=== PATIENT | female | born 1980 | race Caucasian/White ===

== ENCOUNTER 2020-03-07 17:43 | Outpatient (REF) | payer OTHER, SELFPAY | END 2020-03-07 17:44 | disposition home or self-care (01) | LOC: HO.LAB 17:43 | PROVIDERS: PCP Internal Medicine; Visit Provider Internal Medicine | DX: Z20.828 Contact with and (suspected) exposure to other viral communicable diseases (principal) | CPT/HCPCS: U0003 ==

== ENCOUNTER 2023-10-24 10:54 | Outpatient (AMB) | payer OTHER, SELFPAY ==
[2023-10-24 11:14] VITALS: BP 112/68; PULSE 97; O2SAT 98
--- NOTE | 2023-10-24 11:14 | A.OFFVIS_ITS ---
Vital Signs 10/24/23 11:14 Weight 148 lb 5.938 oz BP 112/68 Blood Pressure Location Rt brachial Position Sitting Pulse 97 Pulse Source Pulse Oximeter Pulse Oximetry (%) 98 Oxygen Delivery Method Room Air Intake Visit Reasons: polyarthralgia/Rash Intake Note: New patient presents today for consult, +RORO Reports joint pain, rashes [employer] Kitchen Required: No Accompanied by: Self / Same As Patient Allergies No Known Allergies Allergy (Verified 10/24/23 11:15) HPI Comments Details: Ms. Galaviz 43 yoF here on referral from PCP for evaluation of rash in the context of a +RORO (value not seen on referral), ENAs -ve. --Hx of Crohn's at 12 yo - partial illiectomy secondary to spontaneous perforation,- last seen GI about 10 years ago., original symptoms - bloody stools, vomiting much, Abdominal cramps. --last bout of Uveiitis - 5 or 6 years ago --mouth sores - once per week --Hip pain - L>R felt more with activity. 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 Mother Arthritis Social History Alcohol intake: current Alcohol intake frequency: holidays/special occasions only Patient Tobacco Use Status: Never used Tobacco Review of Systems Const All systems reviewed & are unremarkable except as noted in HPI and below Physical Exam Vital Signs: Last Vital Signs Pulse 97 10/24/23 11:14 BP 112/68 10/24/23 11:14 Pulse Ox 98 10/24/23 11:14 Oxygen Delivery Method Room Air 10/24/23 11:14 Vital signs reviewed. Constitutional: Non-toxic appearing. No acute distress. Well-developed and well-nourished. HEENT: Normocephalic and atraumatic. External auditory canals without erythema or edema bilaterally. Moist mucous membranes. No pharyngeal erythema or exudates. Skin: Warm and dry. hyperpigmented areas to cheeks with scattered healing dry scaly lesions. Neck: Full and painless range of motion. No cervical lymphadenopathy. Cardio: Regular rate and rhythm. No murmurs, gallops, or rubs. No lower extremity edema. No JVD. Pulmonary: No respiratory distress. No accessory muscle usage. Gastrointestinal: Soft, nontender, and nondistended in all 4 quadrants. Normoactive bowel sounds in all 4 quadrants. Genitourinary: No CVA tenderness. Musculoskeletal: Normal range of motion in joints throughout the body. No deformity or other signs of injury. Neuro: Alert and oriented x4. Cranial nerves 2-12 grossly intact. No focal deficits appreciated. 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, SSA/SSB, Scl 70, Miladis 1, centromere B, C3/C4, cardiolipin antibodies, B2 glycoprotein, rheumatoid factor, CCP, TPO Assessment & Plan Assessment & Plan (1) History of Crohn's disease: Code(s): Z87.19 - Personal history of other diseases of the digestive system Category: Medical (2) Rash and nonspecific skin eruption: Code(s): R21 - Rash and other nonspecific skin eruption Category: Medical (3) History of uveitis: Code(s): Z86.69 - Personal history of other diseases of the nervous system and sense organs Category: Medical (4) Inflammatory bowel arthritis: Code(s): K63.9 - Disease of intestine, unspecified; M07.60 - Enteropathic arthropathies, unspecified site Category: Medical Plan #Rash/+RORO: The major question from the patient is if this is Lupus because of the +RORO. I reviewed referral labs and the ENAs are Negative. She does not have a clinical presentation for lupus. and the +RORO can be due to the Crohn's history. 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 Although the patient maintains that her Crohn's is in remission since the surgery over 10 years ago, and she denies diarrhea, blood and mucous in stool, given these symptoms, she should have a GI evaluation - I will make a referral. She shoud discuss with PCP a DERM consult. #Possible IBD arthritis: She has had bouts of Uveiitis (5 years ago) since the surgery/during remission. Some of her current symptoms, such as lower back and hip pain, can be due to IBD arthritis. However, if the crohn's is not active, it is likely onset of OA. She is very active with hiking and exercising. Even if she is without GI symptoms, it may be reasonable to consider starting SLZ and assess for improvement to lower back, hip and resolution of mouth sores, and rash. She takes Ibuprofen 800 mg tablets for joint pain. I spent 35 minutes reviewing history evaluating patient and documenting Follow-up as needed Orders: Referrals Gastroenterology Referral Z87.19 - Personal history of other diseases of the digestive system Coding Level of Care Code New Pt Level 4 (62327) Diagnoses History of Crohn's disease Z87.19 Rash and nonspecific skin eruption R21 History of uveitis Z86.69 Inflammatory bowel arthritis K63.9; M07.60
== END 2023-10-24 12:19 | disposition home or self-care (01) ==
PROVIDERS: PCP Internal Medicine; Visit Provider Nurse Practitioner Family
DX: Z87.19 Personal history of other diseases of the digestive system (principal); R21 Rash and other nonspecific skin eruption; Z86.69 Personal history of other diseases of the nervous system and sense organs; K63.9 Disease of intestine, unspecified; M07.60 Enteropathic arthropathies, unspecified site
CPT/HCPCS: 99204

== ENCOUNTER → 2023-10-24 10:54 | Outpatient (BNVA) | payer OTHER, SELFPAY | PROVIDERS: PCP Internal Medicine; Visit Provider Nurse Practitioner Family ==

== ENCOUNTER 2024-02-07 13:02 | Outpatient (REF) | payer OTHER, SELFPAY ==
[2024-02-07 15:21] LABS: TSH reflex Free T4 0.98 uIU/mL (0.32-4.0)
[2024-02-07 15:34] LABS: Folate 7.3 ng/mL (> or = 4.0); Vitamin B12 710 pg/mL (200-900)
[2024-02-12 16:08] LABS: Vitamin D 25-OH, D2 <4 ng/mL; Vitamin D 25-OH, D3 31 ng/mL; Vitamin D 25-OH, Total 31 ng/mL (30-100)
== END 2024-02-07 13:03 | disposition home or self-care (01) ==
LOC: HO.LAB 13:02
PROVIDERS: PCP Nurse Practitioner Family; Visit Provider Nurse Practitioner Family
DX: R19.7 Diarrhea, unspecified (principal); E55.9 Vitamin D deficiency, unspecified; K59.00 Constipation, unspecified
CPT/HCPCS: 36415; 82306; 82607; 82746; 84443

== ENCOUNTER 2024-02-07 13:02 | Outpatient (AMB) | payer OTHER, SELFPAY ==
--- NOTE | 2024-02-07 13:04 | MHC.OFFVIS ---
Vital Signs 02/07/24 13:05 Height 5 ft 3 in Weight 145 lb 8.081 oz BMI 25.8 BP 141/80 H Blood Pressure Location Lt brachial Position Sitting Pulse 75 Intake Visit Reasons: Patient with HX of crohn's Intake Note: Natasha presents in the office as a new patient for Hx of Crohns. CC: She states that she does have bouts of constipation to the point where she will have rectal bleeding. She has been in remission and had a colonoscopy 10-12 years ago. She is having other symptoms with her skin with swelling of the face and patches that felt like shingles on her face as well. She states that started in May and ended in September. Crew Person Required: No Allergies latex Allergy (Mild, Verified 02/07/24 13:09) Rash Seasonal Allergies Allergy (Mild, Verified 02/07/24 13:09) Unknown HPI HPI Patient with HX of crohn's: Details: 43-year-old male with past medical history of Crohn's, uveitis, anxiety, migraines is here today for initial consultation. Patient was seen in the past and diagnosed with Crohn's as a child diagnosed at age 12. Patient was seen by pediatric GI specialist at [facility] and then was seen as an adult at [facility]. Patient has not been on any medication to treat her chronic condition for a very long time. Patient reports that she had bowel resection in the past for perforated ileum. Currently patient has constipation and has been dealing with constipation for quite some time. Patient reports occasional blood after bowel movement. Patient denies any abdominal pain or discomfort, however she does admit to having occasional cramps and bloating depending on what she eats. Patient denies any dyspepsia, dysphagia or odynophagia. Not on any particular diet at this time. Patient referred by her adjuster and inspector. [facility] Medical History Inflammatory bowel arthritis History of uveitis Rash and nonspecific skin eruption History of Crohn's disease Migraine Anxiety Crohn's disease RORO positive Pain in joint, multiple sites Surgical History History of surgery Hx of hernia repair Family History Father No problems noted. Mother Arthritis Social History Alcohol intake: current Alcohol intake frequency: holidays/special occasions only Patient Tobacco Use Status: Never used Tobacco Review of Systems Const Denies weight gain and Denies weight loss ENT Reports no additional complaints, Denies dysphagia and Denies odynophagia Card Reports no additional complaints Resp Reports no additional complaints GI Denies abdominal pain, Denies belching, Denies melena, Reports bloating, Reports constipation, Denies dysphagia, Denies excessive flatus, Denies dyspepsia, Denies heartburn, Denies diarrhea, Reports loose stools (Occasional), Denies nausea, Denies odynophagia and Denies vomiting Reports no additional complaints Musc Reports no additional complaints Neuro Reports no additional complaints Psych Reports no additional complaints Endo Reports no additional complaints Physical Exam Const General: healthy appearing, no acute distress and well developed Nutritional Appearance: well nourished Orientation/consciousness: patient oriented x3 Resp Effort & Inspection: normal respiratory effort, able to speak in complete sentences, no tracheal deviation and symmetric chest movement Auscultation: clear to auscultation bilaterally Cardio Rate: regular rate GI Inspection: Yes normal to inspection and No distended Palpation (GI): Soft to palpation, not firm, nontender and No hepatosplenomegaly present Auscultation: normal bowel sounds General: Yes no CVA tenderness Back/Spine/Pelvis Back: no CVA tenderness Skin General skin exam: elasticity normal, turgor normal and dry skin Neuro General: patient oriented x3 Psych Appearance: grossly normal Mental Status: mental status grossly normal Assessment & Plan Assessment & Plan (1) History of Crohn's disease: Code(s): Z87.19 - Personal history of other diseases of the digestive system Category: Medical (2) Postprandial abdominal bloating: Code(s): R14.0 - Abdominal distension (gaseous) (3) Constipation: Code(s): K59.00 - Constipation, unspecified Qualifiers: Constipation type: slow transit constipation Qualified Code(s): K59.01 - Slow transit constipation Plan Will check fecal calprotectin. Patient will be sent for colonoscopy and upper endoscopy. History of perforated ileum and small-bowel resection in the past. Will try to get records from [facility]. Low FODMAP diet discussed with patient. List of food recommended as well as list of food to avoid given to patient. History of uveitis and skin eruption that most likely is related to her Crohn's. Patient also reports frequent mouth sores. Even though patient does not have any symptoms would be important to do CT enterography in the near future. I will see patient in 3 months, sooner on as needed basis. She is agreeable to this plan and verbalizes understanding of instructions. She was given the opportunity to ask questions and all questions answered. Thank you for allowing me to participate in her care Orders: Orders Calprotectin, Fecal Today R15.9 - Full incontinence of feces Vitamin B12 and Folate Today R19.7 - Diarrhea, unspecified Vitamin D 25-OH (D2 and D3) Today E55.9 - Vitamin D deficiency, unspecified TSH reflex Free T4 Today K59.00 - Constipation, unspecified Medications: New bisacodyl (Dulcolax (bisacodyl)) 10 mg (2 x 5 mg) PO BEDTIME 180 tabs 4RF polyethylene glycol 3350 (Miralax) As directed by gastroenterology department at [facility] 238 grams PO ONCE 238 grams 0RF Z12.11 - Encounter for screening for malignant neoplasm of colon Coding Level of Care Code New Pt Level 4 (68923) Diagnoses History of Crohn's disease Z87.19 Postprandial abdominal bloating R14.0 Slow transit constipation K59.01 Constipation type: slow transit constipation Time Spent (min) 45 Comment 30 minutes spent with patient and additional 15 minutes spent reviewing her records
[2024-02-07 13:05] VITALS: BP 141/80; PULSE 75; BMI 25.8
== END 2024-02-07 13:44 | disposition home or self-care (01) ==
PROVIDERS: PCP Internal Medicine; Visit Provider Nurse Practitioner Family
DX: Z87.19 Personal history of other diseases of the digestive system (principal); R14.0 Abdominal distension (gaseous); K59.01 Slow transit constipation
CPT/HCPCS: 99204

== ENCOUNTER 2024-02-14 11:10 | Outpatient (REF) | payer OTHER, SELFPAY ==
[2024-02-21 22:03] LABS: Calprotectin, Fecal 126 mcg/g
== END 2024-02-14 11:11 | disposition home or self-care (01) ==
LOC: HO.LNP 11:10
PROVIDERS: Visit Provider Nurse Practitioner Family
DX: R15.9 Full incontinence of feces (principal)
CPT/HCPCS: 83993

== ENCOUNTER 2024-03-13 11:52 | Day surgery (SDC) | payer OTHER, SELFPAY ==
[2024-03-13 12:04] VITALS: BMI 26.2
[2024-03-13] MEDS: Lactated Ringers 1,000 ML 100 ML IVCONT (12:12)
[2024-03-13 12:14] VITALS: BP 116/73; PULSE 73; RESP 18; TEMP 36.7; O2SAT 99
[2024-03-13 12:15] LABS: UPreg QC Valid YES; Urine Pregnancy NEGATIVE (NEGATIVE)
--- NOTE | 2024-03-13 12:15 | P.CONAN_ITS ---
Documented by User: Chayito Mclain NP 03/12/24 09:44 HPI - Anesthesia Eval Consult details Narrative: 43yo F for Upper Endoscopy and Colonoscopy PMFSH Active Problems Active Problems: All Active Problems Inflammatory bowel arthritis (Acute) History of uveitis (Acute) Rash and nonspecific skin eruption (Acute) History of Crohn's disease (Acute) Past Medical History Medical History Inflammatory bowel arthritis History of uveitis Rash and nonspecific skin eruption History of Crohn's disease Migraine Anxiety Crohn's disease RORO positive Pain in joint, multiple sites Family History Family History Father No problems noted. Mother Arthritis Surgical History Surgical History History of surgery Hx of hernia repair Social History Social History Are you a primary career development engineer to a significant other at home: No Do you presently have visiting nurse or other home services: No Alcohol intake: current Alcohol intake frequency: holidays/special occasions only Patient Tobacco Use Status: Never used Tobacco Have you been hit, kicked, punched, or otherwise hurt by someone within the past year? If so, by whom?: No Are you DNR?: No Advance Directives: No Advance Directives Information Provided: Yes Recently lost weight without trying: No Nutrition Risks: No Nutritional Risk FDLMP: mirena - no periods Meds Allergies Allergy/AdvReac Type Severity Reaction Status Date / Time latex Allergy Mild Rash Verified 03/13/24 11:42 Seasonal Allergies Allergy Mild Unknown Verified 03/13/24 11:42 Home Medications ?Medication ?Instructions ?Recorded ?Confirmed ?Last Taken ?Type alprazolam 0.5 mg tablet 0.5 mg PO DAILY PRN Anxiety 10/24/23 03/13/24 Unknown History azelastine 137 mcg-fluticasone 50 intranasal 10/24/23 Unknown History mcg/spray nasal spray bupropion HCl 150 mg 24 hr tablet, 150 mg PO QAM 10/24/23 03/13/24 Unknown History extended release cetirizine 10 mg tablet 10 mg PO DAILY 10/24/23 03/13/24 Unknown History sertraline 50 mg tablet 50 mg PO DAILY 10/24/23 03/13/24 Unknown History Assessment and Plan Assessment Anesthesia Assessment: Chart Reviewed Documented by User: Tiffanie Sagastume DO 03/13/24 12:20 [facility] Past Medical History Medical History Inflammatory bowel arthritis History of uveitis Rash and nonspecific skin eruption History of Crohn's disease Migraine Anxiety Crohn's disease RORO positive Pain in joint, multiple sites Family History Family History Father No problems noted. Mother Arthritis Family history of problems with anesthesia: No Surgical History Surgical History History of surgery Hx of hernia repair History of Problems with Anesthesia: No Social History Social History Are you a primary career development engineer to a significant other at home: No Do you presently have visiting nurse or other home services: No Alcohol intake: current Alcohol intake frequency: holidays/special occasions only Patient Tobacco Use Status: Never used Tobacco Have you been hit, kicked, punched, or otherwise hurt by someone within the past year? If so, by whom?: No Are you DNR?: No Advance Directives: No Advance Directives Information Provided: Yes Recently lost weight without trying: No Nutrition Risks: No Nutritional Risk FDLMP: mirena - no periods Meds Allergies Allergy/AdvReac Type Severity Reaction Status Date / Time latex Allergy Mild Rash Verified 03/13/24 11:42 Seasonal Allergies Allergy Mild Unknown Verified 03/13/24 11:42 Home Medications ?Medication ?Instructions ?Recorded ?Confirmed ?Last Taken ?Type alprazolam 0.5 mg tablet 0.5 mg PO DAILY PRN Anxiety 10/24/23 03/13/24 Unknown History azelastine 137 mcg-fluticasone 50 intranasal 10/24/23 Unknown History mcg/spray nasal spray bupropion HCl 150 mg 24 hr tablet, 150 mg PO QAM 10/24/23 03/13/24 Unknown History extended release cetirizine 10 mg tablet 10 mg PO DAILY 10/24/23 03/13/24 Unknown History sertraline 50 mg tablet 50 mg PO DAILY 10/24/23 03/13/24 Unknown History Exam Exam Date and Time: 03/13/24 1215 Height,Weight and Vital Signs: Height 5 ft 3 in Weight 67.132 kg Vital Signs Temperature 98.0 F 03/13/24 12:14 Pulse Rate 73 03/13/24 12:14 Respiratory Rate 18 03/13/24 12:14 Blood Pressure 116/73 03/13/24 12:14 Pulse Oximetry 99 03/13/24 12:14 Oxygen Delivery Method Room Air 03/13/24 12:14 Temperature 98.0 F 03/13/24 12:14 Pulse Rate 73 03/13/24 12:14 Respiratory Rate 18 03/13/24 12:14 Blood Pressure 116/73 03/13/24 12:14 Pulse Oximetry 99 03/13/24 12:14 Oxygen Delivery Method Room Air 03/13/24 12:14 Airway Mallampati Class: II TM Dist: >3cm Neck ROM: Full Heart: S1S2 Lungs: CTAB Other: Invisalign top and bottom jaw Assessment and Plan Assessment Anesthesia Assessment: Anesthesia Plan Discussed and Chart Reviewed Final Anesthetic Review Family History of Problems with Anesthesia: No History of Problems with Anesthesia: No NPO: Yes ASA Class: II Final Preanesthetic Review: No Changes in Pt Med Stat, Meds/Allgs Chart Reviewed, Consent Obtained/Reviewed and Anes Risks/Benef Reviewed Patient Risk: Low Procedure Risk: Low Anesthetic Plan Anesthetic Plan: MAC: and Agree w/ Assess. and Plan Disposition: Standard PACU
--- NOTE | 2024-03-13 12:54 | MHC.SHP ---
Pre-Procedural Eval Section A - 24 Hr Update-Section A only Date of Service: 03/13/24 Section B - Complete if H&P > 30 days Chief Complaint: History of crohns Details of Present Illness: Inflammatory bowel arthritis History of uveitis Rash and nonspecific skin eruption History of Crohn's disease Migraine Anxiety Crohn's disease RORO positive Pain in joint, multiple sites Surgical History History of surgery Hx of hernia repair Present Medications: see Short Stay Collaborative assessment Allergies: Allergies Allergy/AdvReac Type Severity Reaction Status Date / Time latex Allergy Mild Rash Verified 03/13/24 11:42 Seasonal Allergies Allergy Mild Unknown Verified 03/13/24 11:42 Review of Systems Review of Systems Comment: Ten point ROS negative Exam Exam Comment: Gen appear: No acute distress HEENT: no icterus Chest: No overt resp distress Abd: soft, nontender, nondistended Psych: Stable affect, answering questions appropriately Neuro: A/Ox3 noted to move all extremities spontaneously Ext: no peripheral edema Plan Diagnosis/Plan: Unchanged I have reviewed the history and physical and performed a pertinent physical examination on my patient. No changes have occurred unless specified. Time Spent With Patient Time: Total time managing care of this patient today ____ minutes.
[2024-03-13 13:45] VITALS: BP 90/55; PULSE 71; RESP 16; TEMP 36.1; O2SAT 97
[2024-03-13 14:03] VITALS: BP 103/58; PULSE 64; RESP 16; TEMP 36.1; O2SAT 100
--- NOTE | 2024-03-13 14:12 | P.OPN-COLO_ITS ---
Colonoscopy Operative Note Operative Note Date of Service: 03/13/24 Narrative: Procedure: Upper endoscopy and colonoscopy Indication: Crohns disease Endoscopist: Una Pham MD Anesthesia Provider: Zabrina Murrieta CRNA Anesthesia type: MAC Instrument: [id number] and [id number] EGD Procedure:?? The procedure, indications, preparation and potential complications were reviewed with the patient, who indicated understanding and gave written informed consent to proceed. The endoscope was introduced through the mouth, and advanced to the 2nd part of the duodenum. The mucosa was carefully examined on slow withdrawal of the endoscope. The patient tolerated the procedure well. There were no immediate complications.? EGD Findings:? * Esophagus:? Normal esophageal mucosa was noted. The Z-line was at 38 cm. Cold forceps biopsies were taken from middle and lower esophagus to rule out eosinophilic esophagitis. * Stomach:? Erythema and erosions in the antrum. Retroflexion was performed in the cardia. Random cold forceps biopsies were taken from the stomach. * Duodenum:? Normal duodenal mucosa. Cold forceps biopsies were taken from the duodenal bulb and 2nd portion of the duodenum to rule out celiac sprue. Colonoscopy Procedure:? The patient was then turned for the colonoscopy. A digital rectal exam was performed which was abnormal for external hemorrhoids.? A distal attachment cap was affixed to the tip of the scope and the colonoscope was then inserted through the anus and advanced through the colon and advanced to the end-to-end ileocolonic anastomosis.?Mucosa was carefully examined under high definition white light as the instrument was slowly withdrawn in a retrograde panoramic fashion. Retroflexion was performed in rectum. The procedure was not difficult. The quality of the prep was BBPS: 2+3+3 = adequate Withdrawal time 22 minutes Limitations: No limitations Findings: Mucosa: Normal colon mucosa. The ileocolonic anastomosis appeared inflamed and narrow. The krisnha-terminal ileum had erythema with whitish exudates up to 8 cm of intubation. Rutgeert's score i4. Remaining terminal ileum appeared normal. Cold forceps biopsies were taken from terminal ileum and colon. Protruding lesions: * Small internal hemorrhoids without stigmata of recent bleeding. Excavated lesions: * Mild few diverticulosis in the sigmoid colon. Additional intervention: TTS wire guided colonic balloon was introduced through the biopsy channel and advanced through the IC anastomosis. Balloon dilation was performed from 12 mm to 15 mm with good effect (heme noted). Impression: 1. Normal esophagus (biopsy) 2. Gastritis (biopsy) 3. Normal duodenum (biopsy) 4. Normal colon mucosa (biopsy) 5. Inflammation and stenosis of ileocolonic anastomosis - Rutgeert's score i4 (biopsy, dilation) 6. Internal and external hemorrhoids 7. Diverticulosis Recommendations:?? * Follow-up path results * Avoid NSAIDs * Start Omeprazole 20mg once daily x 4 weeks * Overall assessment consistent with post-op recurrence - will await biopsies to r/o ischemia * Consider CT or MR enterography * Will likely need combo anti-TNF + immunomodulator therapy
== END 2024-03-13 14:28 | disposition home or self-care (01) ==
PROVIDERS: Nurse Practitioner; PCP Nurse Practitioner Family; Visit Provider Internal Medicine
PROC: (CPT 45380; principal; 2024-03-13 14:10)
DX: K50.90 Crohn's disease, unspecified, without complications (principal); K29.70 Gastritis, unspecified, without bleeding; K63.9 Disease of intestine, unspecified; K57.30 Diverticulosis of large intestine without perforation or abscess without bleeding; K91.858 Other complications of intestinal pouch; K62.4 Stenosis of anus and rectum; K64.8 Other hemorrhoids; K64.4 Residual hemorrhoidal skin tags; K59.01 Slow transit constipation; Z87.19 Personal history of other diseases of the digestive system; Z86.69 Personal history of other diseases of the nervous system and sense organs
CPT/HCPCS: 45380; 45386; 43239; 81025; 88305; 88313; 88342; C1726; J1100; J1596; J2003; J2704

== ENCOUNTER → 2024-03-13 11:52 | Outpatient (BNV) | payer OTHER, SELFPAY | PROVIDERS: PCP Nurse Practitioner Family; Visit Provider Internal Medicine | DX: K29.70 Gastritis, unspecified, without bleeding (principal); K57.30 Diverticulosis of large intestine without perforation or abscess without bleeding; Z87.19 Personal history of other diseases of the digestive system; K64.8 Other hemorrhoids; K56.699 Other intestinal obstruction unspecified as to partial versus complete obstruction; K91.89 Other postprocedural complications and disorders of digestive system | CPT/HCPCS: 43239; 45380; 45386 ==

== ENCOUNTER 2024-06-19 14:23 | Outpatient (AMB) | payer OTHER, SELFPAY ==
[2024-06-19 14:30] VITALS: BP 126/76; PULSE 66; O2SAT 100; BMI 27.6
--- NOTE | 2024-06-19 14:30 | MHC.OFFVIS ---
Vital Signs 06/19/24 14:30 Height 5 ft 3 in Weight 156 lb 1.396 oz BMI 27.6 BP 126/76 Blood Pressure Location Rt brachial Position Sitting Pulse 66 Pulse Source Pulse Oximeter Pulse Oximetry (%) 100 Oxygen Delivery Method Room Air Intake Visit Reasons: 3 month follow up Intake Note: ESTABLISHED PATIENT for mgmt of fecal abn. S/P FUV. Labs done Chief Complaint; Constipation, nausea w/o vomiting, worsening reflux. Pt states they are taking zofran for chronic migraines which causes some of her constipation. Pt also has not taken Omeprazole due to $70 copay. Pt is hoping we can provide an alternative. Denies any additional concerns. Supply Chain Generalist Required: No Accompanied by: Self / Same As Patient Allergies latex Allergy (Mild, Verified 06/19/24 14:30) Rash Seasonal Allergies Allergy (Mild, Verified 06/19/24 14:30) Unknown HPI HPI 3 month follow up: Details: LAST VISIT: History of Crohn's disease Postprandial abdominal bloating Constipation Plan Will check fecal calprotectin. Patient will be sent for colonoscopy and upper endoscopy. History of perforated ileum and small-bowel resection in the past. Will try to get records from [facility]. Low FODMAP diet discussed with patient. List of food recommended as well as list of food to avoid given to patient. History of uveitis and skin eruption that most likely is related to her Crohn's. Patient also reports frequent mouth sores. Even though patient does not have any symptoms would be important to do CT enterography in the near future. I will see patient in 3 months, sooner on as needed basis. She is agreeable to this plan and verbalizes understanding of instructions. She was given the opportunity to ask questions and all questions answered. ? Thank you for allowing me to participate in her care Orders Orders Calprotectin, Fecal Today R15.9 Vitamin B12 and Folate Today R19.7 Vitamin D 25-OH (D2 and D3) Today E55.9 TSH reflex Free T4 Today K59.00 Medications New bisacodyl (Dulcolax (bisacodyl)) 10 mg (2 x 5 mg) PO BEDTIME 180 tabs 4RF polyethylene glycol 3350 (Miralax) As directed by gastroenterology department at [facility] 238 grams PO ONCE 238 grams 0RF Z12.11 UPPER ENDOSCOPY AND COLONOSCOPY: EGD Findings:? Esophagus:? Normal esophageal mucosa was noted. The Z-line was at 38 cm. Cold forceps biopsies were taken from middle and lower esophagus to rule out eosinophilic esophagitis. Stomach:? Erythema and erosions in the antrum. Retroflexion was performed in the cardia. Random cold forceps biopsies were taken from the stomach. Duodenum:? Normal duodenal mucosa. Cold forceps biopsies were taken from the duodenal bulb and 2nd portion of the duodenum to rule out celiac sprue. Colonoscopy Procedure:? The patient was then turned for the colonoscopy. A digital rectal exam was performed which was abnormal for external hemorrhoids.? A distal attachment cap was affixed to the tip of the scope and the colonoscope was then inserted through the anus and advanced through the colon and advanced to the end-to-end ileocolonic anastomosis.?Mucosa was carefully examined under high definition white light as the instrument was slowly withdrawn in a retrograde panoramic fashion. Retroflexion was performed in rectum. The procedure was not difficult. The quality of the prep was BBPS: 2+3+3 = adequate Withdrawal time 22 minutes Limitations: No limitations Findings: Mucosa: Normal colon mucosa. The ileocolonic anastomosis appeared inflamed and narrow. The krishna-terminal ileum had erythema with whitish exudates up to 8 cm of intubation. Rutgeert's score i4. Remaining terminal ileum appeared normal. Cold forceps biopsies were taken from terminal ileum and colon. Protruding lesions: Small internal hemorrhoids without stigmata of recent bleeding.Excavated lesions: Mild few diverticulosis in the sigmoid colon. Additional intervention: TTS wire guided colonic balloon was introduced through the biopsy channel and advanced through the IC anastomosis. Balloon dilation was performed from 12 mm to 15 mm with good effect (heme noted). Impression: 1. Normal esophagus (biopsy) 2. Gastritis (biopsy) 3. Normal duodenum (biopsy) 4. Normal colon mucosa (biopsy) 5. Inflammation and stenosis of ileocolonic anastomosis - Rutgeert's score i4 (biopsy, dilation) 6. Internal and external hemorrhoids 7. Diverticulosis Recommendations:?? Follow-up path results Avoid NSAIDs Start Omeprazole 20mg once daily x 4 weeks Overall assessment consistent with post-op recurrence - will await biopsies to r/o ischemia Consider CT or MR enterography Will likely need combo anti-TNF + immunomodulator therapy PATHOLOGY RESULTS Diagnosis A. Duodenum, biopsy: Duodenal mucosa within normal limits. B. Stomach, random, biopsy: Antral-type mucosa with mild chronic, focally active, inflammation; no Helicobacter organisms seen. C. Esophagus, lower, biopsy: Squamous mucosa within normal limits; no inflammation seen. D. Esophagus, mid, biopsy: Squamous mucosa within normal limits; no inflammation seen. E. Terminal ileum, biopsy: Small intestinal mucosa with focal active inflammation. F. Ileocolonic anastomosis, biopsy: Ileocolonic mucosa with mild active inflammation and crypt disarray. G. Colon, ascending, biopsy: Colonic mucosa within normal limits. H. Colon, transverse, biopsy: Colonic mucosa within normal limits. I. Colon, descending, biopsy: Colonic mucosa within normal limits. J. Colon, sigmoid, biopsy: Colonic mucosa within normal limits. K. Rectum, biopsy: Rectal mucosa within normal limits. Comment: No dysplasia or granulomata are identified TODAY'S VISIT: Patient is here today for follow-up and to discuss upper endoscopy and colonoscopy results. Patient denies any ill effects from the prep, anesthesia or procedure itself. However patient reports that she has been dealing with significant acid reflux taking Tums [id number]. Was unable to get her omeprazole due to high co-pay. Patient was unable to also fill her migraine medication due to insurance not covering it. Patient has no provider that helps her with migraine or follows her. Patient had mild active inflammation in ileocolonic anastomosis which was dilated during the procedure and biopsy showed mild active inflammation and crypt disarray Rutgeert's score i4. Patient knows that she has to go on biologic and immunosuppressant medication to help her stay in remission. Patient had mildly elevated fecal calprotectin when we check last time. Patient reports that she was taking ibuprofen quite a bit for migraine headaches. Upper endoscopy showed gastritis. Patient denies any nausea or vomiting. Patient is following low FODMAP diet and definitely feels much better. Now that she is taking Zofran for nausea due to migraine headaches she is more constipated. Patient is trying to drink water and eat more fiber like food. [facility] Medical History (Updated 06/23/24 @ 20:38 by Pepper Glez [facility]) GERD (gastroesophageal reflux disease) Inflammatory bowel arthritis History of uveitis Rash and nonspecific skin eruption History of Crohn's disease Migraine Anxiety Crohn's disease RORO positive Pain in joint, multiple sites Surgical History History of surgery Hx of hernia repair Family History Father No problems noted. Mother Arthritis Social History Are you a primary emergency care tech to a significant other at home: No Do you presently have visiting nurse or other home services: No Alcohol intake: current Alcohol intake frequency: holidays/special occasions only Patient Tobacco Use Status: Never used Tobacco Review of Systems Const Denies weight gain and Denies weight loss ENT Reports no additional complaints, Denies dysphagia and Denies odynophagia Card Reports no additional complaints Resp Reports no additional complaints GI Denies abdominal pain, Denies belching, Denies melena, Reports bloating, Denies change in bowel habits, Reports constipation, Denies dysphagia, Denies excessive flatus, Denies dyspepsia, Reports heartburn, Denies diarrhea, Denies loose stools, Denies nausea, Denies odynophagia and Denies vomiting Reports no additional complaints Musc Reports no additional complaints Neuro Reports no additional complaints Psych Reports no additional complaints Endo Reports no additional complaints Physical Exam Vital Signs: Last Vital Signs Pulse 66 06/19/24 14:30 BP 126/76 06/19/24 14:30 Pulse Ox 100 06/19/24 14:30 Oxygen Delivery Method Room Air 06/19/24 14:30 BMI result Body Mass Index 27.6 Const General: healthy appearing, no acute distress and well developed Nutritional Appearance: well nourished Orientation/consciousness: patient oriented x3 Resp Effort & Inspection: normal respiratory effort, able to speak in complete sentences, no tracheal deviation and symmetric chest movement Auscultation: clear to auscultation bilaterally Cardio Rate: regular rate GI Inspection: Yes normal to inspection and No distended Palpation (GI): Soft to palpation, not firm, nontender and No hepatosplenomegaly present Auscultation: normal bowel sounds General: Yes no CVA tenderness Back/Spine/Pelvis Back: no CVA tenderness Skin General skin exam: elasticity normal, turgor normal and dry skin Neuro General: patient oriented x3 Psych Appearance: grossly normal Mental Status: mental status grossly normal Assessment & Plan Assessment & Plan (1) Gastritis: Code(s): K29.70 - Gastritis, unspecified, without bleeding Category: Medical Qualifiers: Chronicity: unspecified Gastritis bleeding: without bleeding Gastritis type: superficial Qualified Code(s): K29.30 - Chronic superficial gastritis without bleeding (2) Crohn disease: Code(s): K50.90 - Crohn's disease, unspecified, without complications Qualifiers: Gastrointestinal tract location: small intestine Digestive disease complication type: without complication Qualified Code(s): K50.00 - Crohn's disease of small intestine without complications (3) Constipation: Code(s): K59.00 - Constipation, unspecified Qualifiers: Constipation type: slow transit constipation Qualified Code(s): K59.01 - Slow transit constipation (4) Migraine: Code(s): G43.909 - Migraine, unspecified, not intractable, without status migrainosus Category: Medical Qualifiers: Migraine type: unspecified Status migrainosus presence: without status migrainosus (5) GERD (gastroesophageal reflux disease): Code(s): K21.9 - Gastro-esophageal reflux disease without esophagitis Category: Medical Qualifiers: Esophagitis presence: without esophagitis Qualified Code(s): K21.9 - Gastro-esophageal reflux disease without esophagitis (6) Postprandial abdominal bloating: Code(s): R14.0 - Abdominal distension (gaseous) Plan Patient will be sent for CT enterography as we planned last visit. Patient will take omeprazole. We will send the script to [email or web address] so she can get it with good Rx card. Continue avoiding dietary triggers and late night snacking. Continue low FODMAP diet. Patient was encouraged to take fiber with probiotics to help her move her bowels better. Patient will be referred to Neurology to help manage her migraine headaches that she has been dealing with since she was in 4th grade. Patient will follow-up in 6 months. However when the CT enterography comes back we will discuss her going on biologic and make appointment with MOHINDER to teach injections if necessary. She is agreeable to current plan of care and verbalizes understanding of instructions. She was given the opportunity to ask questions and all questions answered. Thank you for allowing me to participate in her care Orders: Orders Blood Urea Nitrogen 06/20/24 R10.11 - Right upper quadrant pain CT enterography 06/19/24 R19.5 - Other fecal abnormalities Creatinine 06/20/24 R10.11 - Right upper quadrant pain Referrals Neurology Referral G43.909 - Migraine, unspecified, not intractable, without status migrainosus Medications: Refilled omeprazole 20 mg PO DAILY 90 caps 3RF K29.70 - Gastritis, unspecified, without bleeding Coding Level of Care Code Est Pt Level 4 (65802) Complex EM visit Add On G2211 Diagnoses Superficial gastritis without hemorrhage, unspecified chronicity K29.30 Chronicity: unspecified Gastritis bleeding: without bleeding Gastritis type: superficial Crohn's disease of small intestine without complication K50.00 Gastrointestinal tract location: small intestine Digestive disease complication type: without complication Slow transit constipation K59.01 Constipation type: slow transit constipation Migraine G43.909 Migraine type: unspecified Status migrainosus presence: without status migrainosus Gastroesophageal reflux disease without esophagitis K21.9 Esophagitis presence: without esophagitis Postprandial abdominal bloating R14.0 Time Spent (min) 40 Comment 25 minutes spent with patient and additional 15 minutes spent reviewing her records
--- OUTSIDE RECORDS SUMMARY | 2024-06-19 15:20 | XMS_ITS | Clinical Summary ---
Author Organization [facility] ity Address [address] [place] [id number] Care Team Providers Care Electrical Supervisor Name Role Phone Gilda Nails MD Primary Care Provider [phone] Allergies Active Allergy Reactions Criticality Noted Date Comments Latex Shortness of breath,Wheezing High 006 Medications levonorgestreL (MIRENA) 21 mcg/24hr (up to 8 yrs) 52 mg IUD 1 Each by Intrauterine route Once. 1 02/14/20 26 Active fluticasone HFA (FLOVENT HFA) 110 mcg/actuation inhaler Inhale 1 Puff into the lungs 2 times daily. 0 Active albuterol HFA (PROAIR HFA ; PROVENTIL HFA ; VENTOLIN HFA) 90 mcg/actuation inhaler Inhale 2 Puffs into the lungs 4 times daily as needed for Wheezing or Shortness of Breath. 0 Active hydrOXYzine HCL (ATARAX) 25 mg tablet 0 Active naproxen (NAPROSYN) 500 mg tablet Take 1 Tab by mouth 2 times daily (with meals). 8 Active Active Problems Problem Noted Date Diagnosed Date Obesity (BMI 30.0-34.9) 04/05/2018 Hypercholesterolemia 10/21/2006 Asthma 06/17/2005 Crohn's disease 06/17/2005 Overview (05/07/2024): ilectomy 1994 Hypothyroidism in 06/17/2005 Immunizations Name Administration Dates Next Due H1N1 Inj Preservative Free 06/02/2009 Influenza Quadravalent, MDCK , 0.5ml, with preservative (Flucelvax) 6mo and older 02/26/2019,02/27/2018 Influenza trivalent, with pr eservative (Fluzone; Afluria) 6mo and older 06/02/2009,02/14/2007,04/23/2006,03/22 Influenza, Unspecified 02/05/2021,02/06/2020 Moderna SARS-CoV-2 COVID-19, mRNA, LNP-S, preservative free 07/02/2020,06/04/2020 PPD Test 03/26/2005 Pfizer SARS-CoV-2 COVID-19, mRNA, LNP-S, preservative free 04/17/2021 Pneumococcal polysaccharide 23 valent (Pneumovax 23) 2yo and older 05/28/2019 Td Tetanus diptheria (Tdvax) 7yo and older 05/28/2019,03/22/2005 Surgical History Surgery Date Site/Laterality Comments OTHER SURGICAL HISTORY 1993 PROCEDURE: [place] COLECTOMY PARTIAL W/ANASTOMOSIS; COMMENT: iliectomy Medical History Medical History Date Comments Regional enteritis of unspecified site 06/17/2005 DX:Regional enteritis of unspecified site; COMMENT: ilectomy 1993 Unspecified asthma(493.90) 06/17/2005 DX:Un specified asthma(493.90) Unspecified hypothyroidism 06/17/2005 DX:Un specified hypothyroidism Pure hypercholesterolemia 10/21/2006 DX:Pur e hypercholesterolemia Family History Medical History Relation Name Comments Hyperlipidemia Father Asthma Mother Leukemia Paternal Grandfather Dementi a Coronary artery disease Paternal Grandmother Renal failure (no DM) Ulcerative colitis Sister Breast cancer Neg Hx Relation Name Status Comments Father Alive Mother Alive Paternal Grandfather Paternal Grandmother Sister Alive Social History Tobacco Use Types Packs/Day Years Used Date Smoking Tobacco: Never Smokeless Tobacco: Never Alcohol Use Standard Drinks/Week Comments Yes 0 (1 standard drink = 0.6 oz pur e alcohol) Comments Unknown Sex and Gender Information Value Date Recorded Sex Assigned at Not on file Legal Sex Female 1:05 AM EST Gender Identity Not on file Sexual Orientation Not on file Obstetrics History Plan of Treatment Health Maintenance Due Date Last Done Comments Hepatitis B Vaccines (1 of 3 - 19+ 3-dose series) 10/17/1999 Pneumococcal Vaccine: Pediatrics (0 to 5 Years) and At-Risk Patients (6 to 64 Years) (2 of 2 - PCV) 05/28/2020 05/28/2019 Depression Screening 04/17/2022 HIV Screening 04/17/2022 Hepatitis C Screening 04/17/2022 Social Influencers of Health Screening 04/17/2022 COVID-19 Vaccine ( season) 2024 04/17/2021, 07/02/2020, 06/04/2020 Influenza Vaccine (#1) 2024 , 02/06/2020, 02/26/2019, Additional history exists Cholesterol Screening (Lipid Panel) 05/28/2024 05/28/2019 Breast Cancer Screening 08/10/2024 08/10/2022, 08/03 Cervical Cancer Screening: HPV 05/15/2025 05/15/2020 DTaP,Tdap,and Td Vaccines (3 - Td or Tdap) 05/28/2029 05/28/2019, 03/22/2005 HIB Vaccines Aged Out No longer eligi ble based on patient's age to complete this topic HPV Vaccines Aged Out No longer eligi ble based on patient's age to complete this topic Hepatitis A Vaccines Aged Out No long er eligible based on patient's age to complete this topic IPV Vaccines Aged Out No longer eligi ble based on patient's age to complete this topic MMR Vaccines Aged Out No longer eligi ble based on patient's age to complete this topic Meningococcal ACWY Vaccine Aged Out N o longer eligible based on patient's age to complete this topic RSV Immunization Patients Under 20 months Aged Out No longer eligible based on patient's age to complete this topic Varicella Vaccines Aged Out No longer eligible based on patient's age to complete this topic Procedures Procedure Name Priority Date/Time Associated Diagnosis Comments SCREENING MAMMOGRAPHY BI 2-VIEW BREAST INC CAD Routine 08/10/2022 9:24 AM EDT Encounter for screening mammogram for malignant neoplasm of breast HM HPV Routine 05/15/2020 LIPID PANEL Routine 05/28/2019 from Last 3 Months or Most Recently Relevant to Health Maintenance Results * SCREENING MAMMOGRAPHY BI 2-VIEW BREAST INC CAD (08/10/2022 9:24 AM EDT) Anatomical Region Laterality Modality Radiographic Becky ging 08/03/2021 7:19 PM EDT Narrative 08/10/2022 4:14 PM EDT This is a summary report. The complete report is available in the patient's medical record. If you cannot access the medical record, please contact the sending organization for a detailed fax or copy. Full field digital screening 2D and tomosynthesis mammography, reviewed with CAD and compared to previous. The breast tissue is heterogeneously dense, limiting sensitivity. No suspicious mass, architectural distortion or suspicious calcifications are identified. IMPRESSION: : Dense breast tissue, limiting the sensitivity of mammography. No mammographic evidence of malignancy. BIRADS 1-Negative; N. 5 year breast cancer risk assessment 0.5 % Lifetime breast cancer risk assessment 8.2 % Breast cancer risk category Low (<15%) Procedure Note Gwen Palacios MD - 06/13/2023 This is a summary report. The complete report is available in thepatient's medical record. If you cannot access the medical record, pleasecontact the sending organization for a detailed fax or copy. Full field digital screening 2D and tomosynthesis mammography, reviewedwith CAD and compared to previous. The breast tissue is heterogeneouslydense, limiting sensitivity. No suspicious mass, architectural distortionor suspicious calcifications are identified. IMPRESSION: : Dense breast tissue, limiting the sensitivity of mammography. Nomammographic evidence of malignancy. BIRADS 1-Negative; N. 5 year breast cancer risk assessment 0.5 % Lifetime breast cancer risk assessment 8.2 % Breast cancer risk category Low (<15%) Rah Villarreal DO IMG XR PROCEDURES Final Resul t * Cervical Cancer Screening: HPV (05/15/2020) Cervical Cancer Screening: HPV negative,a bstracted Historical Provider HEALTH MAINTENANCE Final Result * (ABNORMAL) Lipid panel (05/28/2019) LDL/HDL Ratio 4 0 - 4 Triglycerides 114 0 - 150 mg/dL Cholesterol 222(A) 0 - 200 mg/dL HDL 58 >=40 mg/dL LDL Cholesterol 142(A) 0 - 100 mg/dL Blood Venous blood specimen / Unknown us Historical Provider LAB BLOOD ORDERABLES Akila l Result from Last 3 Months or Most Recently Relevant to Health Maintenance Care Teams Electrical Supervisor Relationship Specialty Start Date End Date Gilda Nails MD [address] [place] [address] PCP - General 03/11/05
== END 2024-06-19 15:13 | disposition home or self-care (01) ==
PROVIDERS: PCP Internal Medicine; Visit Provider Nurse Practitioner Family
DX: K29.30 Chronic superficial gastritis without bleeding (principal); K50.00 Crohn's disease of small intestine without complications; K59.01 Slow transit constipation; G43.909 Migraine, unspecified, not intractable, without status migrainosus; K21.9 Gastro-esophageal reflux disease without esophagitis; R14.0 Abdominal distension (gaseous)
CPT/HCPCS: 99214

== ENCOUNTER 2024-06-20 16:11 | Outpatient (REF) | payer OTHER, SELFPAY ==
--- OUTSIDE RECORDS SUMMARY | 2024-06-20 16:39 | XMS_ITS | Clinical Summary ---
Author Organization [facility] ity Address [address] [place] [id number] Care Team Providers Care Detail Drafter Name Role Phone Gilda Nails MD Primary Care Provider [phone] Allergies Active Allergy Reactions Criticality Noted Date [...] Recently Relevant to Health Maintenance Care Teams Detail Drafter Relationship Specialty Start Date End Date Gilda Nails MD [address] [place] [address] PCP - General 03/11/05
[2024-06-20 17:03] LABS: Blood Urea Nitrogen 14 mg/dL (9-16); Estimated Glomerular Filt Rate > 60
== END 2024-06-20 16:12 | disposition home or self-care (01) ==
LOC: HO.LAB 16:11
PROVIDERS: PCP Nurse Practitioner Family; Visit Provider Nurse Practitioner Family
DX: R10.11 Right upper quadrant pain (principal)
CPT/HCPCS: 36415; 82565; 84520

== ENCOUNTER 2024-07-05 10:29 | Outpatient (REF) | payer OTHER, SELFPAY ==
--- NOTE | ~2024-07-05 | CT_ITS ---
EXAMINATION: CT ENTEROGRAPHY ABDOMEN AND PELVIS WITH CONTRAST CLINICAL INFORMATION: History of Crohn's disease, inflammatory bowel arthritis and fecal incontinence. GERD COMPARISON: None available. TECHNIQUE: Study performed with oral VoLumen (1350 mL) and 480 mL of water to distend the abdomen. The patient was injected with 85 mL Omnipaque 350 intravenous contrast which was administered without adverse effect. Coronal and sagittal reformatted images were obtained at the technologist's workstation. This CT examination was performed using dose optimization techniques as appropriate, variously including the following: *Automated exposure control *Adjustment of mA and/or kV according to patient size (this includes techniques or standardized protocols for targeted exams where dose is matched to indication/reason for exam; i.e. extremities or head) *Use of iterative reconstruction technique FINDINGS: GASTROINTESTINAL FINDINGS: Stomach: Stomach is well distended without any wall thickening, hiatal hernia. The distal esophagus and GE junction appears normal. Small intestine: Satisfactorily distended small bowel loops. Nonspecific mild thickening of second segment of duodenum and distal ileocecal junction is noted. It is best visualized on coronal images 33/6. Rest of the distal and the terminal ileum appears unremarkable. Nonspecific lymph nodes measuring 9 mm seen in the ileocecal mesentery on axial image 54/4. Large intestine: Scattered stool is seen in sigmoid colon. Rest of colon is distended with gas and some scattered stool. Additional findings: No abnormal enhancement of the vasa recta or significant mesenteric or retroperitoneal lymphadenopathy is seen. No abdominal abscess or fistulous tract demonstrated. ABDOMINAL AND PELVIC CT FINDINGS: Liver, gallbladder, biliary tract: The liver is normal size, contour and density. No focal lesion or intrahepatic ductal dilatation. Gallbladder is unremarkable. No radiopaque calculi. Pancreas: Pancreas is homogeneous in density without focal lesion. The peripancreatic soft tissues are preserved. Spleen: Unremarkable. Adrenal glands and kidneys: There is a 5 mm hypodense left adrenal lesion of the lateral limb, too small to correctly characterize. The right middle gland is unremarkable. Both kidney nephrograms are symmetrical with normal cortical thickness and shape. No focal lesion or intrahepatic duct dilatation seen. There is a 1 mm radiopaque density in interpolar region of left kidney probable small stone. Ureters and bladder: The ureters and bladder are unremarkable. No hydroureteronephrosis. The bladder is normally distended with no radiopaque dependent calculi wall thickening. Lymphovascular structures: The abdominal aorta is normal caliber. IVC of normal caliber. No retrocrural lymph nodes seen. Pelvis: There is a midline uterus with an IUD well located in the endometrial canal. Bones: No aggressive lytic or sclerotic process seen . Lung bases: The lung bases are clear. The heart size is normal. No pericardial pleural effusion seen. CT/CT enterography IMPRESSION: Mild mural thickening ileocecal junction and second segment of duodenum likely sequelae of Crohn's disease. No additional areas of abnormality seen. Mild constipation with scattered stool in sigmoid colon. Electronically signed by: Benito Reddy MD 07/05/2024 01:52 PM EST
--- OUTSIDE RECORDS SUMMARY | 2024-07-05 12:14 | XMS_ITS | Clinical Summary ---
Author Organization [facility] ity Address [address] [place] [phone] Care Team Providers Care Skin Lap Bonder Name Role Phone Gilda Nails MD Primary Care Provider [phone] Allergies Active Allergy Reactions Criticality Noted Date [...] Site/Laterality Comments OTHER SURGICAL HISTORY 1993 PROCEDURE: [place] COLECTOMY PARTIAL W/ANASTOMOSIS; COMMENT: iliectomy Medical History [...] patient's age to complete this topic Meningococcal B Vacine Aged Out No lo nger eligible based on patient's age to complete [...] t * Cervical Cancer Screening: HPV (05/15/2020) Pathologist [facility] Cervical Cancer Screening: HPV negative,a bstracted Historical [...] Recently Relevant to Health Maintenance Care Teams Skin Lap Bonder Relationship Specialty Start Date End Date Gilda Nails MD [address] [place] [id number] PCP - General 03/11/05
[2024-07-05] MEDS: iohexoL 350 MG/ML 100 ML INFUS..BTL IV (12:49)
[2024-07-05] MEDS: Sorbitol/Mannit/Xanth Imaging 500 ML LIQUID 1500 ML PO (12:50)
== END 2024-07-05 10:30 | disposition home or self-care (01) ==
LOC: HO.CT 10:29
PROVIDERS: PCP Nurse Practitioner Family; Visit Provider Nurse Practitioner Family
DX: R19.5 Other fecal abnormalities (principal)
CPT/HCPCS: 74177; Q9967

== ENCOUNTER → 2024-07-05 10:30 | Outpatient (BNV) | payer OTHER, SELFPAY | PROVIDERS: PCP Nurse Practitioner Family; Visit Provider Radiology Diagnostic Radiology | DX: K50.00 Crohn's disease of small intestine without complications (principal) | CPT/HCPCS: 74177 ==

== ENCOUNTER 2024-11-19 13:15 | Outpatient (AMB) | payer OTHER, SELFPAY ==
[2024-11-19 13:18] VITALS: BP 110/84; PULSE 91; O2SAT 98; BMI 26.1
--- NOTE | 2024-11-19 13:18 | MHC.OFFVIS ---
Vital Signs 11/19/24 13:18 Height 5 ft 3 in Weight 147 lb 2 oz BMI 26.1 BP 110/84 Blood Pressure Location Lt brachial Position Sitting Pulse 91 Pulse Source Pulse Oximeter Pulse Oximetry (%) 98 Oxygen Delivery Method Room Air Intake Visit Reasons: INP-Migraine Intake Note: Patient presents to the office today as a new patient visit for migraines. Allergies latex Allergy (Mild, Verified 11/19/24 13:22) Rash Seasonal Allergies Allergy (Mild, Verified 11/19/24 13:22) Unknown Medication List - Last Reconciled 11/19/24 by CHELSEA Grewal alprazolam 0.5 mg PO DAILY PRN azelastine-fluticasone 137-50 mcg/spray intranasal bupropion HCl XL 150 mg PO QAM cetirizine 10 mg PO DAILY hydroxyzine HCl 25 mg PO BID PRN omeprazole 20 mg PO DAILY ondansetron HCl 4 mg PO Q8H propranolol 10 mg PO BID PRN sertraline 50 mg PO DAILY HPI Comments Details: History of Present Illness The patient is a 44-year-old female presenting with headaches. She has experienced migraines since the age of 10, with an escalation in frequency and intensity over the past several years. Her migraines are characterized by an aura that includes visual disturbances (blindness, especially in the right eye), light sensitivity, nausea, and occasionally vertigo. The patient is also sensitive to chemical smells which can trigger headaches. She has been using Excedrin and Tylenol for headache management, taking Tylenol about four to five times per week for less severe headaches. Her severe migraines occur approximately two to three times per month and can last from a few hours to several days. The auras typically last an hour and a half, with the patient experiencing loss of vision, pressure, throbbing, and stabbing pain, usually on the right side. Stress and lack of sleep exacerbate her symptoms. During intense migraine episodes, she also experiences vertigo, which prevents her from functioning at work. The patient has been prescribed samples of Ubrelvy and Qulipta in the past, which were effective, but currently only uses [id number] medications due to insurance constraints. 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 Review of Systems - Neurological: Reports intermittent headaches, visual auras, vertigo during severe episodes, tingling in hands and face during migraines, difficulty thinking during headaches, sensitivity to light, sound, smell, and touch during episodes - Gastrointestinal: Reports nausea, vomiting with extreme migraines; reports constipation and diarrhea related to Crohn's disease - Musculoskeletal: Reports joint pain with Crohn's reactivation - Psychiatric: Reports anxiety, ADHD, denies diagnosed depression Past Medical History - Chronic Migraine with Aura - Crohn?s Disease - Anxiety Disorder - Attention Deficit Hyperactivity Disorder (ADHD) - Anemia ( in the past, has tolerated oral iron supplements well) - Vitamin D Deficiency Past medical history also notable for: History of neurological disorders: Denies History of ear Nose and Throat disorders: Denies History of TMJ disorders: Denies History of musculoskeletal disorders: Denies History of musculoskeletal injuries: Denies History of concussion: Denies History of head injury: Denies History of coma: Denies History of mood disorder: Anxiety, ADHD History of respiratory disorders: Childhood asthma History of sleep apnea: Denies History of cardiovascular disease: Family history on father's side History of hematological or coagulation disorders: Denies History of cancer: Denies History of anemia: Yes, previously on supplements History of metabolic or endocrine disorders: Denies History of seizure: Denies History of syncope: Vasovagal once- upon seeing an injured family member with a large amount of bloody drainage History of genitourinary disorders: Denies History of kidney stones: Denies History of gastrointestinal disorders: Crohn's disease History of constipation: Yes, related to medication History of gynecological disorders: Denies Reproductive health status: Desire for family planning: Denies Current use of control: Mirena IUD Menstrual cycle is: Absent due to IUD Past surgical history: None Family History - Mother: Headaches - Father: History of headaches in childhood, heart disease on parental side - Paternal grandparents: Heart disease Headache Review Headache questionnaire: Onset of initial headache symptoms: Age 10 Initial precipitating cause of this headache: Unknown Previous workup for this headache: None Types of headache disorders: Chronic migraine with aura Typical headache characteristics of this headache: Prodrome symptoms: Unknown Aura: Yes, visual disturbances- right eye vision loss x1-1.5 or even hours. Headache pain intensity: [id number] daily migraine, and less frequent severe migraine Location, quality, characteristics of this headache: Right side, stabbing, pressure, throbbing Associated migraine symptoms: constant light sensitivity, sound sensitivity, smell sensitivity. Also Facial flushing and tingling, nausea, touch sensitivity, fatigue, dizziness, cognitive difficulties, fatigue, Activity intolerance. When migraine is severe, also as orthostatic lightheadedness, not right in space dizziness, vomiting. Headache postdrome: has constant headache Headache aggravating factors: standing up or bending over Headache triggers: Light changes, chemical smells Time of day this headache usually occurs: Varies, sometimes upon waking Headache frequency: [id number] daily migraine, 2-3 severe migraine attacks per month Headcahe duration: constant headache, with severe migraine attacks lasting 1-3.5 days Impact of this headache on patient's quality of life: may need to miss work or daily activities. Current acute medication used for this headache: Excedrin, Tylenol Current preventative medication used for this headache: Propranolol- primarily for anxiety. Bupropion- for ADHD tx. 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 Substance Use History - Caffeine use: 3 servings per day - Reports occasional alcohol use, including hard seltzer or a glass of wine - Denies tobacco use - Marijuana use: Denies - Other illicit substance use: Denies Exercise The patient engages in yoga, Yen, or hiking three times per week. Sleep Early riser by nature Usual bedtime: 8:30-9pm Usual wake-up time: 5am Sleep difficulties: Difficulty falling and staying asleep. - Reports 's snoring as a potential sleep disturbance Snoring: Not sure Apneas: Denies Gasping arousals: Denies Excessive daytime sleepiness: Denies Fatigue: Yes Restless sleep: Yes Nocturnal leg cramps: Occasionally Restless leg syndrome: Not diagnosed, but prone to not being able to sit still and need to be active. Bruxism: Denies PFSH Medical History GERD (gastroesophageal reflux disease) Inflammatory bowel arthritis History of uveitis Rash and nonspecific skin eruption History of Crohn's disease Migraine Anxiety Crohn's disease RORO positive Pain in joint, multiple sites Surgical History History of surgery Hx of hernia repair Family History Father No problems noted. Mother Arthritis Social History Are you a primary pulmonary care nurse to a significant other at home: No Do you presently have visiting nurse or other home services: No Alcohol intake: current Alcohol intake frequency: holidays/special occasions only Patient Tobacco Use Status: Never used Tobacco Physical Exam Vital Signs: Last Vital Signs Pulse 91 11/19/24 13:18 BP 110/84 11/19/24 13:18 Pulse Ox 98 11/19/24 13:18 Oxygen Delivery Method Room Air 11/19/24 13:18 BMI result Body Mass Index 26.1 Const Orientation/consciousness: patient oriented x3 Resp Effort & Inspection: normal respiratory effort and able to speak in complete sentences Neuro Other: No palpable scalp tenderness. Good cervical ROM. Negative Musa Spurling. Mild leg tapping/restlessness. General: patient oriented x3 Cranial nerves: Yes CN's II-XII intact bilaterally Cognition (Neuro): normal cognition Gait exam (Neuro): Normal gait present Motor exam (neuro): 5/5 motor strength present throughout Deep tendon reflexes (DTR's): Right triceps reflex intensity grade: 3+, Left triceps reflex intensity grade: 3+, Rt Biceps (C5, C6): 3+, Left biceps reflex intensity grade: 3+, Right brachioradialis reflex intensity grade: 3+, Left brachioradialis reflex intensity grade: 3+, Right patellar reflex intensity grade: 3+ and Left patellar reflex intensity grade: 3+ Coordination: [id number] test normal, tandem gait normal and Romberg test negative Pupils: Normal pupillary reactivity/response: bilateral Psych Appearance: grossly normal Mental Status: mental status grossly normal Speech and movement: Normal speech and movement present Affect: normal affect Attitude: cooperative Thought process: Normal thought process present Assessment & Plan Assessment & Plan (1) Worsening headaches: Code(s): R51.9 - Headache, unspecified Category: Medical (2) Visual aura: Comment: Prolonged right eye visual aura Code(s): H53.9 - Unspecified visual disturbance Category: Medical (3) Migraine with aura: Code(s): G43.109 - Migraine with aura, not intractable, without status migrainosus Category: Medical Qualifiers: Status migrainosus presence: without status migrainosus Intractability: not intractable Qualified Code(s): G43.109 - Migraine with aura, not intractable, without status migrainosus (4) Chronic migraine without aura: Code(s): G43.709 - Chronic migraine without aura, not intractable, without status migrainosus Category: Medical Qualifiers: Status migrainosus presence: without status migrainosus Intractability: not intractable Qualified Code(s): G43.709 - Chronic migraine without aura, not intractable, without status migrainosus (5) Sleep difficulties: Code(s): G47.9 - Sleep disorder, unspecified Category: Medical Plan Discussion Notes During this consultation, I discussed the patient?s chronic migraine with aura as a primary focus, as well as possible exacerabting factors including sleep diffiulties, restlessness, possible rLS s/s in setting of h/o anemia, B12 def, and Crohn's disease. Different management strategies were explored, including considering preventative treatments and as-needed medications to control her migraine symptoms. We talked about lifestyle modifications like optimizing sleep and reducing stress. I recommended adjustments to current management, including using triptans for acute migraine relief, and considered preventive measures like amitriptyline, to reduce frequency and intensity. The potential benefits and side effects of medications were discussed, as was the potential need for an MRI to rule out other causes. We covered follow-up scenarios, advising the patient on when to seek further assessment. Plan and Patient Instructions We have advised you to have the following exams: Brain MRI with and without contrast to assess for secondary etiologies of worsening migraine headaches with prolonged aura and facial tingling. Fasting labs to assess for possible underlying causes of possible RLS and restless sleep s/s. For overall headache management: It is important to practice good self-care, including but not limited to eating a healthy diet, drinking enough fluids (typically 64 oz per day), maintaining a good sleep routine, and engaging in regular physical activity (typically 30-45 minutes of moderate physical activity 5 days per week). To help us better understand your headache: - Continue to track headaches, especially after treatment plan changes. Migraine [employer] is one of many headache tracking apps you may use. - To reduce light sensitivity: Minimize blue light exposure by using blue light blocking devices, such as: Blue light filtering glasses, FL-41 rosario tinted blue light filtering glasses, Blue light blocking screen protectors, Changing the blue light levels on your electronic devices. Increasing green light exposure by using devices that increase green light exposure, such as wearing green lensed glasses or green light therapy lamps (such as the Allay Lamp). Avoid wearing traditional sunglasses inside. - To reduce noise sensitivity: Minimize exposure to loud sounds and environments by using noise reduction/cancelling devices, such as foam ear plugs, noise reducing ear plugs (such as Loop Ear Plugs), or noise cancelling headphones. For acute headache treatment: It is important to take as needed acute medications at the first sign of headache, however you want to avoid taking most as needed headache too often as this can lead to medication overuse/adaptation headaches. Carry acute medication with you at all times. Trial Sumatriptan 100mg tab, 1/2 - 1 tab (50-100mg) at onset of headache, and if headcahe has not fully resolved in 2 hours, you may repeat the dose. Do not take more than 2 tabs (200mg) per 24 hours. - Sumatriptan is a migraine specific as needed medication. - You may take sumatriptan with: OTC Tylenol 650-1,000mg every 4-6 hours Ibuprofen (liquid gels) 600mg every 6 hours Naproxen (liquid gels) 440mg every 12 hours as needed. - Potential adverse effects of sumatriptan, include but are not limited to nausea, fatigue, chest tightness/tingling (usually passes within a few minutes), medication overuse headaches. Previous acute migraine medication trials: Ubrely samples- effective. Excedrin- ineffective. Acute migraine headache medication contraindications: none at this time For headache prevention medication: Preventative medications should be taken routinely as prescribed for best effect, it may take several weeks to see full effect. - Start Riboflavin 400mg daily in the morning. -This likely will cause urine to become bright yellow, which is benign. - Start Magnesium 400mg daily at bedtime. - Potential side effects including abdominal discomfort, loose stools. - Continue Propranolol 10mg twice a day. They would not increase further due to risk for worsening orthostatic lightheadedness in setting of low blood pressure. - Start Amitriptyline 10mg daily at 8pm x's 2 weeks, and if well tolerated, increase to 20mg daily at 8pm. - Potential side effects include but are not limited to fatigue, cardiac arrhythmias, mood changes. Previous migraine headache prevention medication trials: Qulipta samples- effective Migraine headache prevention medication contraindications: again caution w/ anti-HTN tx's d/t low BP and orthostatic lightheadedness/dizziness. Case discussed with Dr Leydi Cardona. Patient was informed and verbally consented to the use of an ambient scribe for clinic note documentation during this visit. Will follow-up upon review of above and patient to follow-up in clinic in 3-4 months or sooner prn. Orders: Orders Complete Blood Count Auto Diff Today D64.9 - Anemia, unspecified, K50.90 - Crohn's disease, unspecified, without complications, R51.9 - Headache, unspecified MR head/brain wo/w con Today H53.9 - Unspecified visual disturbance, K63.9 - Disease of intestine, unspecified, M07.60 - Enteropathic arthropathies, unspecified site, R51.9 - Headache, unspecified Comprehensive Met. Panel Today D64.9 - Anemia, unspecified, K50.90 - Crohn's disease, unspecified, without complications, R51.9 - Headache, unspecified Ferritin Today D64.9 - Anemia, unspecified, K50.90 - Crohn's disease, unspecified, without complications, R51.9 - Headache, unspecified IRON PROFILE Today D64.9 - Anemia, unspecified, K50.90 - Crohn's disease, unspecified, without complications, R51.9 - Headache, unspecified Medications: New amitriptyline 10 mg PO BEDTIME 30 tabs 3RF 30 days sumatriptan succinate 50 - 100 mg orally at onset of headache, may repeat in 2 hrs PRN; max 2 tabs per day or 4 tabs/week (may take with Ibuprofen) 12 tabs 6RF migraine headache 30 days magnesium glycinate (Mag Glycinate) 400 mg (4 x 100 mg) PO BEDTIME 120 tabs 6RF 30 days riboflavin (vitamin B2) 400 mg PO DAILY 30 tabs 6RF 30 days Coding Level of Care Code New Pt Level 4 (16038) Diagnoses Worsening headaches R51.9 Visual aura H53.9 Migraine with aura and without status migrainosus, not intractable G43.109 Status migrainosus presence: without status migrainosus Intractability: not intractable Chronic migraine without aura without status migrainosus, not intractable G43.709 Status migrainosus presence: without status migrainosus Intractability: not intractable Sleep difficulties G47.9
== END 2024-11-19 14:45 | disposition home or self-care (01) ==
LOC: HO.HSMS 13:15
PROVIDERS: PCP Nurse Practitioner Family; Visit Provider Nurse Practitioner Family
DX: R51.9 Headache, unspecified (principal); H53.9 Unspecified visual disturbance; G43.109 Migraine with aura, not intractable, without status migrainosus; G43.709 Chronic migraine without aura, not intractable, without status migrainosus; G47.9 Sleep disorder, unspecified
CPT/HCPCS: 99204

== ENCOUNTER 2024-12-16 15:45 | Outpatient (REF) | payer OTHER, SELFPAY ==
--- NOTE | ~2024-12-16 | MR_ITS ---
EXAMINATION: MR BRAIN WITHOUT AND WITH CONTRAST CLINICAL INFORMATION: Chronic migraines. COMPARISON: None available. TECHNIQUE: Multiplanar, multisequence MRI of the brain was obtained before and after the intravenous administration of 6.5 mL gadolinium based without reported immediate complications. FINDINGS: No restricted diffusion. No abnormal enhancement within the intra-axial or the extra-axial compartment of the cranium. No acute intracranial hemorrhage, mass effect, midline shift, hydrocephalus or herniation. Normal position of the cerebellar tonsils. Sellar/suprasellar region demonstrated no signal abnormality or enhancing mass. Flow-void signal within the main cerebral vessels is normal. There is a 9 mm CSF equivalent nonenhancing no restricted diffusion signal within the medial aspect of the anterior temporal horn right lateral ventricle. No gross of volume loss of the right hippocampal.. MR/MR head/brain wo/w con IMPRESSION: No acute stroke or abnormal enhancement or acute intracranial hemorrhage. 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 Electronically signed by: Paddy Bran MD 12/17/2024 01:26 PM EDT
--- OUTSIDE RECORDS SUMMARY | 2024-12-16 15:54 | XMS_ITS | Clinical Summary ---
Author Organization [facility] ity Address [id number] [place] [id number] Care Team Providers Care It Risk Advisor Name Role Phone Gilda Nails MD Primary Care Provider [phone] Allergies Active Allergy Reactions Criticality Noted Date [...] 04/05/2018 Hypercholesterolemia 10/21/2006 Asthma 06/17/2005 Crohn's disease ([facility] V24, [facility] V28) 06/17 Overview (05/07/2024): ilectomy 1994 Hypothyroidism in 06/17/2005 [...] Site/Laterality Comments OTHER SURGICAL HISTORY 1993 PROCEDURE: AR COLECTOMY PARTIAL W/ANASTOMOSIS; COMMENT: iliectomy Medical History [...] 5 Years) and At-Risk Patients (6 to 49 Years) (2 of 2 - PCV) 05/28/2020 05/28/2019 HIV Screening 04/17/2022 Hepatitis C Screening 04/17/2022 Social Influencers of Health Screening 04/17/2022 COVID-19 Vaccine (4 - season) 2024 04/17/2021, 07/02/2020, 06/04/2020 Depression Screening 05/09/2024 Cholesterol Screening (Lipid Panel) 05/28/2024 05/28/2019 Breast Cancer Screening 08/10/2024 08/10/2022, 08/03 Influenza Vaccine (#1) 2025 , 02/06/2020, 02/26/2019, Additional history exists Cervical Cancer Screening: HPV 05/15/2025 05/15/2020 DTaP,Tdap,and [...] age to complete this topic Meningococcal B Vaccine Aged Out No l onger eligible based on patient's age to complete [...] * Cervical Cancer Screening: HPV (05/15/2020) Pathologist [facility] Cervical Cancer Screening: HPV negative,a bstracted Historical Provider HEALTH MAINTENANCE Final Result * (ABNORMAL) Lipid panel (05/28/2019) Pathologist [facility] LDL/HDL Ratio 4 0 - 4 Triglycerides 114 0 - 150 mg/dL Cholesterol 222(A) 0 - 200 mg/dL HDL 58 >=40 mg/dL LDL Cholesterol 142(A) 0 - 100 mg/dL Blood Venous blood specimen / Unknown us Historical Provider LAB BLOOD ORDERABLES Akila l Result from Last 3 Months or Most Recently Relevant to Health Maintenance Care Teams It Risk Advisor Relationship Specialty Start Date End Date Gilda Nails MD [address] [place] [id number] PCP - General 03/11/05
== END 2024-12-16 15:46 | disposition home or self-care (01) ==
LOC: HO.MRI 15:45
PROVIDERS: Visit Provider Nurse Practitioner Family
DX: H53.9 Unspecified visual disturbance (principal); K63.9 Disease of intestine, unspecified; M07.60 Enteropathic arthropathies, unspecified site; G43.909 Migraine, unspecified, not intractable, without status migrainosus
CPT/HCPCS: 70553; A9585

== ENCOUNTER → 2024-12-16 16:14 | Outpatient (BNV) | payer OTHER, SELFPAY | PROVIDERS: Visit Provider Radiology Diagnostic Radiology | DX: G43.909 Migraine, unspecified, not intractable, without status migrainosus (principal) | CPT/HCPCS: 70553 ==

== ENCOUNTER 2024-12-17 08:14 | Outpatient (AMB) | payer OTHER, SELFPAY ==
--- NOTE | 2024-12-17 08:16 | MHC.OFFVIS ---
Vital Signs 12/17/24 08:17 Height 5 ft 3 in Weight 145 lb BMI 25.7 BP 118/76 Blood Pressure Location Rt brachial Position Sitting Pulse 90 Pulse Source Pulse Oximeter Pulse Oximetry (%) 100 Oxygen Delivery Method Room Air Intake Visit Reasons: 6 mo f/u Intake Note: Est pt for mgmt of GERD + Crohn's. Labs and imaging done. CC: Pt denies any changes or new sx since last visit. Fountain Helper Required: No Accompanied by: Self / Same As Patient Allergies latex Allergy (Mild, Verified 12/17/24 08:17) Rash Seasonal Allergies Allergy (Mild, Verified 12/17/24 08:17) Unknown HPI HPI 6 mo f/u: Details: LAST VISIT: Gastritis Crohn disease Constipation Migraine GERD (gastroesophageal reflux disease) Postprandial abdominal bloating Plan Patient will be sent for CT enterography as we planned last visit. Patient will take omeprazole. We will send the script to [facility] pharmacy so she can get it with good Rx card. Continue avoiding dietary triggers and late night snacking. Continue low FODMAP diet. Patient was encouraged to take fiber with probiotics to help her move her bowels better. Patient will be referred to Neurology to help manage her migraine headaches that she has been dealing with since she was in 4th grade. Patient will follow-up in 6 months. However when the CT enterography comes back we will discuss her going on biologic and make appointment with RN to teach injections if necessary. She is agreeable to current plan of care and verbalizes understanding of instructions. She was given the opportunity to ask questions and all questions answered. ? Thank you for allowing me to participate in her care Orders Blood Urea Nitrogen 06/20/[address] enterography 06/19/24 R19.5 Creatinine 06/20/24 R10.11 Referrals Neurology Referral G43.909 Refilled omeprazole 20 mg PO DAILY 90 caps 3RF K29.70 TODAY'S VISIT: Patient is here today for follow-up. Patient was unable to purchase the biologic as it was too expensive the co-pay was too high. Patient would like to be on something less expensive. Will start her on mesalamine. Patient reports that her symptoms are much better now that she is trying to follow FODMAP diet as best as she can. Once a week diarrhea. Still incomplete emptying occasionally. Currently she is on daily Benefiber with pre and probiotic. Patient denies melena, hematochezia. Denies any dyspepsia, dysphagia or odynophagia. She continues to take omeprazole. Acid reflux is suppressed currently with that. Her avoiding certain dietary triggers also helps her managing her bloating and her bowels. [facility] Medical History Anemia GERD (gastroesophageal reflux disease) Inflammatory bowel arthritis History of uveitis Rash and nonspecific skin eruption History of Crohn's disease Migraine Anxiety Crohn's disease RORO positive Pain in joint, multiple sites Surgical History History of surgery Hx of hernia repair Family History Father No problems noted. Mother Arthritis Social History Are you a primary neonatal intensive care nurse to a significant other at home: No Do you presently have visiting nurse or other home services: No Alcohol intake: current Alcohol intake frequency: holidays/special occasions only Patient Tobacco Use Status: Never used Tobacco Review of Systems Const Denies weight gain and Denies weight loss ENT Reports no additional complaints, Denies dysphagia and Denies odynophagia Card Reports no additional complaints Resp Reports no additional complaints GI Denies abdominal pain, Denies belching, Denies melena, Denies bloating, Denies change in bowel habits, Denies dysphagia, Denies excessive flatus, Denies dyspepsia, Denies heartburn, Denies diarrhea, Denies loose stools, Denies nausea, Denies odynophagia and Denies vomiting Musc Reports no additional complaints Neuro Reports no additional complaints Psych Reports no additional complaints Endo Reports no additional complaints Physical Exam Vital Signs: Last Vital Signs Pulse 90 12/17/24 08:17 BP 118/76 12/17/24 08:17 Pulse Ox 100 12/17/24 08:17 Oxygen Delivery Method Room Air 12/17/24 08:17 BMI result Body Mass Index 25.7 Const General: healthy appearing, no acute distress and well developed Nutritional Appearance: well nourished Orientation/consciousness: patient oriented x3 Resp Effort & Inspection: normal respiratory effort, able to speak in complete sentences, no tracheal deviation and symmetric chest movement Auscultation: clear to auscultation bilaterally Cardio Rate: regular rate GI Inspection: Yes normal to inspection and No distended Palpation (GI): Soft to palpation, not firm, nontender and No hepatosplenomegaly present Auscultation: normal bowel sounds General: Yes no CVA tenderness Back/Spine/Pelvis Back: no CVA tenderness Skin General skin exam: elasticity normal, turgor normal and dry skin Neuro General: patient oriented x3 Psych Appearance: grossly normal Mental Status: mental status grossly normal Results Reviewed Results Reviewed: CT ENTEROGRAPHY GASTROINTESTINAL FINDINGS: Stomach: Stomach is well distended without any wall thickening, hiatal hernia. The distal esophagus and GE junction appears normal. Small intestine: Satisfactorily distended small bowel loops. Nonspecific mild thickening of second segment of duodenum and distal ileocecal junction is noted. It is best visualized on coronal images 33/6. Rest of the distal and the terminal ileum appears unremarkable. Nonspecific lymph nodes measuring 9 mm seen in the ileocecal mesentery on axial image 54/4. Large intestine: Scattered stool is seen in sigmoid colon. Rest of colon is distended with gas and some scattered stool. Additional findings: No abnormal enhancement of the vasa recta or significant mesenteric or retroperitoneal lymphadenopathy is seen. No abdominal abscess or fistulous tract demonstrated. ABDOMINAL AND PELVIC CT FINDINGS: Liver, gallbladder, biliary tract: The liver is normal size, contour and density. No focal lesion or intrahepatic ductal dilatation. Gallbladder is unremarkable. No radiopaque calculi. Pancreas: Pancreas is homogeneous in density without focal lesion. The peripancreatic soft tissues are preserved. Spleen: Unremarkable. Adrenal glands and kidneys: There is a 5 mm hypodense left adrenal lesion of the lateral limb, too small to correctly characterize. The right middle gland is unremarkable. Both kidney nephrograms are symmetrical with normal cortical thickness and shape. No focal lesion or intrahepatic duct dilatation seen. There is a 1 mm radiopaque density in interpolar region of left kidney probable small stone. Ureters and bladder: The ureters and bladder are unremarkable. No hydroureteronephrosis. The bladder is normally distended with no radiopaque dependent calculi wall thickening. Lymphovascular structures: The abdominal aorta is normal caliber. IVC of normal caliber. No retrocrural lymph nodes seen. Pelvis: There is a midline uterus with an IUD well located in the endometrial canal. Bones: No aggressive lytic or sclerotic process seen . Lung bases: The lung bases are clear. The heart size is normal. No pericardial pleural effusion seen. CT/CT enterography IMPRESSION: Mild mural thickening ileocecal junction and second segment of duodenum likely sequelae of Crohn's disease. No additional areas of abnormality seen. Mild constipation with scattered stool in sigmoid colon. Assessment & Plan Assessment & Plan (1) Gastritis: Code(s): K29.70 - Gastritis, unspecified, without bleeding Category: Medical Qualifiers: Gastritis type: superficial Chronicity: unspecified Gastritis bleeding: without bleeding Qualified Code(s): K29.30 - Chronic superficial gastritis without bleeding (2) GERD (gastroesophageal reflux disease): Code(s): K21.9 - Gastro-esophageal reflux disease without esophagitis Category: Medical Qualifiers: Esophagitis presence: without esophagitis Qualified Code(s): K21.9 - Gastro-esophageal reflux disease without esophagitis (3) Crohn's disease: Code(s): K50.90 - Crohn's disease, unspecified, without complications Category: Medical Qualifiers: Gastrointestinal tract location: small intestine Digestive disease complication type: without complication Qualified Code(s): K50.00 - Crohn's disease of small intestine without complications (4) Postprandial abdominal bloating: Code(s): R14.0 - Abdominal distension (gaseous) (5) Constipation: Code(s): K59.00 - Constipation, unspecified Qualifiers: Constipation type: slow transit constipation Qualified Code(s): K59.01 - Slow transit constipation Plan Patient will continue PPI therapy. Continue avoid dietary triggers and late night snacking. Staying upright for minimum 3 hours after meals discussed with patient. We will start patient on mesalamine and we will repeat fecal calprotectin in 6 months. Unable to do biologics as patient was not able to afford the high co-pay. Continue low FODMAP diet. Continue Benefiber. Patient is agreeable to current plan of care and verbalizes understanding of instructions. She was given the opportunity to ask questions and all questions answered. Thank you for allowing me to participate in her care Medications: New mesalamine (Lialda) 2.4 grams (2 x 1.2 gram) PO DAILY 60 tabs 4RF K50.90 - Crohn's disease, unspecified, without complications Coding Level of Care Code Est Pt Level 4 (79296) Complex EM visit Add On G2211 Diagnoses Superficial gastritis without hemorrhage, unspecified chronicity K29.30 Gastritis type: superficial Chronicity: unspecified Gastritis bleeding: without bleeding Gastroesophageal reflux disease without esophagitis K21.9 Esophagitis presence: without esophagitis Crohn's disease of small intestine without complication K50.00 Gastrointestinal tract location: small intestine Digestive disease complication type: without complication Postprandial abdominal bloating R14.0 Slow transit constipation K59.01 Constipation type: slow transit constipation Time Spent (min) 40 Comment 25 minutes spent with patient and additional 15 minutes spent reviewing her records
[2024-12-17 08:17] VITALS: BP 118/76; PULSE 90; O2SAT 100; BMI 25.7
--- OUTSIDE RECORDS SUMMARY | 2024-12-17 08:29 | XMS_ITS | Clinical Summary ---
Author Organization [facility] Address [id number] [place] [id number] Care Team Providers Care Air Brakes Inspector Name Role Phone Gilda Nails MD Primary Care Provider [phone] Allergies Active Allergy Reactions Criticality Noted Date [...] 04/05/2018 Hypercholesterolemia 10/21/2006 Asthma 06/17/2005 Crohn's disease ([facility] [address] V24, [facility] [address] V28) 06/17 Overview (05/07/2024): ilectomy 1994 Hypothyroidism [...] Site/Laterality Comments OTHER SURGICAL HISTORY 1993 PROCEDURE: SD COLECTOMY PARTIAL W/ANASTOMOSIS; COMMENT: iliectomy Medical History [...] * Cervical Cancer Screening: HPV (05/15/2020) Pathologist [facility] Cervical Cancer Screening: HPV negative,a bstracted Historical Provider HEALTH MAINTENANCE Final Result * (ABNORMAL) Lipid panel (05/28/2019) Pathologist [facility] LDL/HDL Ratio 4 0 - 4 Triglycerides 114 0 - 150 mg/dL Cholesterol 222(A) 0 - 200 mg/dL HDL 58 >=40 mg/dL LDL Cholesterol 142(A) 0 - 100 mg/dL Blood Venous blood specimen / Unknown us Historical Provider LAB BLOOD ORDERABLES Akila l Result from Last 3 Months or Most Recently Relevant to Health Maintenance Care Teams Air Brakes Inspector Relationship Specialty Start Date End Date Gilda Nails MD [address] [place] [id number] PCP - General 03/11/05
--- OUTSIDE RECORDS SUMMARY | 2024-12-17 08:30 | XMS_ITS ---
Author Name [facility] Organization Unknown Care Team Organization Name Specialty Phone Email Start Date End Da te [facility] De Markel [facility] 03/16/2022 12/26/2023
== END 2024-12-17 08:55 | disposition home or self-care (01) ==
LOC: HO.HGI 08:15
PROVIDERS: PCP Internal Medicine; Visit Provider Nurse Practitioner Family
DX: K29.30 Chronic superficial gastritis without bleeding (principal); K21.9 Gastro-esophageal reflux disease without esophagitis; K50.00 Crohn's disease of small intestine without complications; R14.0 Abdominal distension (gaseous); K59.01 Slow transit constipation
CPT/HCPCS: 99214

== ENCOUNTER 2024-12-17 08:14 | Outpatient (REF) | payer OTHER, SELFPAY ==
[2024-12-17 09:25] LABS: MANUAL DIFF FLAG NO
[2024-12-17 09:38] LABS: Hematocrit 41.7 % (37.0-47.0); Hemoglobin 13.6 g/dl (12.0-16.0); Imm Gran Abs Auto 0.01 X10*3/uL (0.00-0.03); Imm Gran Pct Auto 0.2 % (0.0-0.4); Lymphocytes Absolute Auto 1.8 X10*3/uL (1.2-4.9); Mean Corpuscular HGB Conc 32.6 g/dl (31.0-35.0); Mean Corpuscular Hemoglobin 27.6 pg (27.0-33.0); Mean Corpuscular Volume 84.8 fL (80.0-98.0); NRBC Abs Auto 0.000 X10*3/uL (0.0-0.012); NRBC Pct Auto 0.0 /100WBC (0.0-0.2); Platelet Count 361 X10*3/uL (160-400); Red Blood Count 4.92 X10*6/uL (4.20-5.50); White Blood Count 5.0 X10*3/uL (4.8-10.8)
[2024-12-17 10:20] LABS: Alanine Aminotransferase 13 U/L (0-31); Albumin Level 4.5 g/dL (3.5-5.0); Alkaline Phosphatase 71 U/L (39-117); Anion Gap 9 (12-20); Aspartate Amino Transferase 30 U/L (5-31); Blood Urea Nitrogen 7 mg/dL (9-16); Calcium 9.3 mg/dL (8.4-10.2); Carbon Dioxide 28 mmol/L (22-29); Chloride 107 mmol/L (96-108); Estimated Glomerular Filt Rate > 60; Iron 70 mcg/dL (30-160); Percent Iron Saturation 28 % (15-50); Potassium 4.2 mmol/L (3.3-5.1); Sodium 140 mmol/L (135-145); Total Iron Binding Capacity 247 mcg/dL (228-428); Total Protein 6.8 g/dL (6.5-8.0); Unsaturated Iron Binding 177 ug/dL
[2024-12-17 10:40] LABS: Ferritin 63 ng/mL (10-250)
== END 2024-12-17 08:15 | disposition home or self-care (01) ==
LOC: HO.LAB 08:14
PROVIDERS: Absent Provider Nurse Practitioner Family; PCP Nurse Practitioner Family; Visit Provider Nurse Practitioner Family
DX: K29.30 Chronic superficial gastritis without bleeding (principal); K50.00 Crohn's disease of small intestine without complications; D64.9 Anemia, unspecified; R51.9 Headache, unspecified; K21.9 Gastro-esophageal reflux disease without esophagitis; R14.0 Abdominal distension (gaseous); K59.01 Slow transit constipation
CPT/HCPCS: 36415; 80053; 82728; 83540; 85025

== ENCOUNTER 2025-02-25 07:43 | Outpatient (AMB) | payer OTHER, SELFPAY ==
[2025-02-25 07:45] VITALS: BP 120/84; PULSE 82; O2SAT 98; BMI 25.4
--- NOTE | 2025-02-25 07:45 | A.OFFVIS_ITS ---
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 Accompanied by: Self / Same As Patient Allergies latex Allergy (Mild, Verified 02/25/25 07:45) Rash Seasonal Allergies Allergy (Mild, Verified 02/25/25 07:45) Unknown Medication List - Last Reconciled 02/25/25 by CHELSEA Grewal alprazolam 0.5 mg PO DAILY PRN amitriptyline 10 mg PO BEDTIME azelastine-fluticasone 137-50 mcg/spray intranasal bupropion HCl XL 150 mg PO QAM cetirizine 10 mg PO DAILY hydroxyzine HCl 25 mg PO BID PRN magnesium glycinate (Mag Glycinate) 400 mg (4 x 100 mg) PO BEDTIME 30 days mesalamine (Lialda) 2.4 grams (2 x 1.2 gram) PO DAILY omeprazole 20 mg PO DAILY ondansetron HCl 4 mg PO Q8H propranolol 10 mg PO BID PRN riboflavin (vitamin B2) 400 mg PO DAILY 30 days sertraline 50 mg PO DAILY sumatriptan succinate 50 - 100 mg orally at onset of headache, may repeat in 2 hrs PRN; max 2 tabs per day or 4 tabs/week (may take with Ibuprofen) 30 days HPI Comments Details: 02/25/2025, HPI: 44-year-old female presenting for follow-up of migraine with visual aura. She denies any significant interval medical changes. 12/16/2024, brain MRI with and without contrast: * No acute stroke or abnormal enhancement or acute intracranial hemorrhage. 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 12/17/2024, labs: CBC WNL, CMP WNL, iron profile WNL, ferritin 63. Yesterday, she reports she had a more severe headache associated with nausea and vomiting, however she is not sure if this was just a more severe migraine or GI illness causing GI symptoms and thus caused a migraine attack. She states she could not keep the sumatriptan down yesterday due to the nausea and vomiting. She reports she is experiencing 1 srvz-fo-swbhykbv headache day per week. She is experiencing 1 more severe migraine with visual aura attack every 3-4 weeks. She is tolerating amitriptyline 10 mg q.h.s. well. She reports other than the above, Sumatriptan is usually effective for acute migraine treatment. She states she is sleeping well. Denies any specific restless leg symptoms. She can be restless and fidgety, which he attributes to ADHD. 11/19/2024, Initial HPI: History of Present Illness The patient is a 44-year-old female presenting with headaches. She has experienced migraines since the age of 10, with an escalation in frequency and intensity over the past several years. Her migraines are characterized by an aura that includes visual disturbances (blindness, especially in the right eye), light sensitivity, nausea, and occasionally vertigo. The patient is also sensitive to chemical smells which can trigger headaches. She has been using Excedrin and Tylenol for headache management, taking Tylenol about four to five times per week for less severe headaches. Her severe migraines occur approximately two to three times per month and can last from a few hours to several days. The auras typically last an hour and a half, with the patient e xperiencing loss of vision, pressure, throbbing, and stabbing pain, usually on the right side. Stress and lack of sleep exacerbate her symptoms. During intense migraine episodes, she also experiences vertigo, which prevents her from functioning at work. The patient has been prescribed samples of Ubrelvy and Qulipta in the past, which were effective, but currently only uses [id number] medications due to insurance constraints. 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 Review of Systems - Neurological: Reports intermittent headaches, visual auras, vertigo during severe episodes, tingling in hands and face during migraines, difficulty thinking during headaches, sensitivity to light, sound, smell, and touch during episodes - Gastrointestinal: Reports nausea, vomiting with extreme migraines; reports con stipation and diarrhea related to Crohn's disease - Musculoskeletal: Reports joint pain with Crohn's reactivation - Psychiatric: Reports anxiety, ADHD, denies diagnosed depression Past Medical History - Chronic Migraine with Aura - Crohn?s Disease - Anxiety Disorder - Attention Deficit Hyperactivity Disorder (ADHD) - Anemia ( in the past, has tolerated oral iron supplements well) - Vitamin D Deficiency Past medical history also notable for: History of neurological disorders: Denies History of ear Nose and Throat disorders: Denies History of TMJ disorders: Denies History of musculoskeletal disorders: Denies History of musculoskeletal injuries: Denies History of concussion: Denies History of head injury: Denies History of coma: Denies History of mood disorder: Anxiety, ADHD History of respiratory disorders: Childhood asthma History of sleep apnea: Denies History of cardiovascular disease: Family history on father's side History of hematological or coagulation disorders: Denies History of cancer: Denies History of anemia: Yes, previously on supplements History of metabolic or endocrine disorders: Denies History of seizure: Denies History of syncope: Vasovagal once- upon seeing an injured family member with a large amount of bloody drainage History of genitourinary disorders: Denies History of kidney stones: Denies History of gastrointestinal disorders: Crohn's disease History of constipation: Yes, related to medication History of gynecological disorders: Denies Reproductive health status: Desire for family planning: Denies Current use of control: Mirena IUD Menstrual cycle is: Absent due to IUD Past surgical history: None Family History - Mother: Headaches - Father: History of headaches in childhood, heart disease on parental side - Paternal grandparents: Heart disease Headache Review Headache questionnaire: Onset of initial headache symptoms: Age 10 Initial precipitating cause of this headache: Unknown Previous workup for this headache: None Types of headache disorders: Chronic migraine with aura Typical headache characteristics of this headache: Prodrome symptoms: Unknown Aura: Yes, visual disturbances- right eye vision loss x1-1.5 or even hours. Headache pain intensity: [id number] daily migraine, and less frequent severe migraine Location, quality, characteristics of this headache: Right side, stabbing, pressure, throbbing Associated migraine symptoms: constant light sensitivity, sound sensitivity, smell sensitivity. Also Facial flushing and tingling, nausea, touch sensitivity, fatigue, dizziness, cognitive difficulties, fatigue, Activity intolerance. When migraine is severe, also as orthostatic lightheadedness, not right in space dizziness, vomiting. Headache postdrome: has constant headache Headache aggravating factors: standing up or bending over Headache triggers: Light changes, chemical smells Time of day this headache usually occurs: Varies, sometimes upon waking Headache frequency: riys-qx-[id number] daily migraine, 2-3 severe migraine attacks per month Headcahe duration: constant headache, with severe migraine attacks lasting 1- 3.5 days Impact of this headache on patient's quality of life: may need to miss work or daily activities. Current acute medication used for this headache: Excedrin, Tylenol Current preventative medication used for this headache: Propranolol- primarily for anxiety. Bupropion- for ADHD tx. 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 Substance Use History - Caffeine use: 3 servings per day - Reports occasional alcohol use, including hard seltzer or a glass of wine - Denies tobacco use - Marijuana use: Denies - Other illicit substance use: Denies Exercise The patient engages in yoga, Yen, or hiking three times per week. Sleep Early riser by nature Usual bedtime: 8:30-9pm Usual wake-up time: 5am Sleep difficulties: Difficulty falling and staying asleep. - Reports 's snoring as a potential sleep disturbance Snoring: Not sure Apneas: Denies Gasping arousals: Denies Excessive daytime sleepiness: Denies Fatigue: Yes Restless sleep: Yes Nocturnal leg cramps: Occasionally Restless leg syndrome: Not diagnosed, but prone to not being able to sit still and need to be active. Bruxism: Denies PFSH Medical History Anemia GERD (gastroesophageal reflux disease) Inflammatory bowel arthritis History of uveitis Rash and nonspecific skin eruption History of Crohn's disease Migraine Anxiety Crohn's disease RORO positive Pain in joint, multiple sites Surgical History History of surgery Hx of hernia repair Family History Father No problems noted. Mother Arthritis Social History Are you a primary outdoor emergency care technician to a significant other at home: No Do you presently have visiting nurse or other home services: No Alcohol intake: current Alcohol intake frequency: holidays/special occasions only Patient Tobacco Use Status: Never used Tobacco Physical Exam Vital Signs: Last Vital Signs Pulse 82 02/25/25 07:45 BP 120/84 02/25/25 07:45 Pulse Ox 98 02/25/25 07:45 Oxygen Delivery Method Room Air 02/25/25 07:45 BMI result Body Mass Index 25.4 Const Orientation/consciousness: patient oriented x3 Resp Effort & Inspection: normal respiratory effort and able to speak in complete sentences Neuro General: patient oriented x3 Cranial nerves: Yes CN's II-XII intact bilaterally Cognition (Neuro): normal cognition Gait exam (Neuro): Normal gait present Psych Appearance: grossly normal Mental Status: mental status grossly normal Speech and movement: Normal speech and movement present Affect: normal affect Attitude: cooperative Thought process: Normal thought process present Assessment & Plan Assessment & Plan (1) Migraine with aura: Code(s): G43.109 - Migraine with aura, not intractable, without status migrainosus Category: Medical Qualifiers: Intractability: not intractable Status migrainosus presence: without status migrainosus Qualified Code(s): G43.109 - Migraine with aura, not intractable, without status migrainosus (2) Visual aura: Comment: Prolonged right eye visual aura Code(s): H53.9 - Unspecified visual disturbance Category: Medical Plan Reviewed Brain MRI with and without contrast results and images with patient: * No findings to account for previous worsening migraine headaches with prolonged aura and facial tingling. * Plan for follow-up 1-2 year MRI to assess stability of probable 9 mm right choroid fissural cyst. Reviewed labs: * Unremarkable * However advised if she develops clear signs of RLS, we could consider trialing oral iron therapy to optimize ferritin levels. For overall headache management: It is important to practice good self-care, including but not limited to eating a healthy diet, drinking enough fluids (typically 64 oz per day), maintaining a good sleep routine, and engaging in regular physical activity (typically 30-45 minutes of moderate physical activity 5 days per week). To help us better understand your headache: - Continue to track headaches, especially after treatment plan changes. * MyCheck is one of many headache tracking apps you may use. - To reduce light sensitivity: * Minimize blue light exposure by using blue light blocking devices, such as: Blue light filtering glasses, FL-41 rosario tinted blue light filtering glasses, Blue light blocking screen protectors, Changing the blue light levels on your electronic devices. * Increasing green light exposure by using devices that increase green light exposure, such as wearing green lensed glasses or green light therapy lamps (such as the Allay Lamp). * Avoid wearing traditional sunglasses inside. - To reduce noise sensitivity: * Minimize exposure to loud sounds and environments by using noise reduction/cancelling devices, such as foam ear plugs, noise reducing ear plugs (such as Loop Ear Plugs), or noise cancelling headphones. For acute headache treatment: It is important to take as needed acute medications at the first sign of headache, however you want to avoid taking most as needed headache too often as this can lead to medication overuse/adaptation headaches. Carry acute medication with you at all times. * Continue Sumatriptan 100mg tab, 1/2 - 1 tab (50-100mg) at onset of headache, and if headache has not fully resolved in 2 hours, you may repeat the dose. Do not take more than 2 tabs (200mg) per 24 hours. * Trial Sumatriptan 20mg nasal spray: * Inhale one nasal spray into one nostril at onset of severe migraine attack with nausea/vomiting, may repeat in 2 hours. Max of 2 nasal sprays per 24 hours. * Potential adverse effects of nasal triptans, include but are not limited to nasal irritation, nausea, fatigue, chest tightness/tingling (usually passes within a few minutes), medication overuse headaches. * You may take sumatriptan with: * OTC Tylenol 650-1,000mg every 4-6 hours * or Ibuprofen (liquid gels) 600mg every 6 hours * or Naproxen (liquid gels) 440mg every 12 hours as needed. Previous acute migraine medication trials: Ubrely samples- effective. Excedrin- ineffective. Acute migraine headache medication contraindications: none at this time For headache prevention medication: Preventative medications should be taken routinely as prescribed for best effec t, it may take several weeks to see full effect. * Continue Riboflavin 400mg daily in the morning. * Continue Magnesium 400mg daily at bedtime. * Continue Propranolol 10mg twice a day. They would not increase further due to risk for worsening orthostatic lightheadedness in setting of low blood pressure * Continue Amitriptyline 10mg daily at 8pm Previous migraine headache prevention medication trials: Qulipta samples- effective Migraine headache prevention medication contraindications: again caution w/ anti-HTN tx's d/t low BP and orthostatic lightheadedness/dizziness. Will follow-up upon review of above and patient to follow-up in clinic in 6 months or sooner prn. Medications: New sumatriptan 20 mg/actuation administer into one nostril as a single dose; if 2nd dose needed,administer into other nostril after at least 2 hrs, NTE 2 doses (40 mg) per episode 20 mg intranasal Q2H PRN 18.0 ea 1RF migraine headache with nausea 30 days Coding Level of Care Code Est Pt Level 4 (36040) Diagnoses Migraine with aura and without status migrainosus, not intractable G43.109 Intractability: not intractable Status migrainosus presence: without status migrainosus Visual aura H53.9
--- OUTSIDE RECORDS SUMMARY | 2025-02-25 07:48 | XMS_ITS | Clinical Summary ---
Author Organization [facility] ity Address [id number] [place] [id number] Care Team Providers Care Aluminum Polisher Name Role Phone Gilda Nails MD Primary Care Provider [phone] Allergies Active Allergy Reactions Criticality Noted Date [...] 04/05/2018 Hypercholesterolemia 10/21/2006 Asthma 06/17/2005 Crohn's disease ([facility] V24, [facility] V28) 06/17 Overview (05/07/2024): ilectomy 1994 Hypothyroidism in 06/17/2005 Immunizations Immunization Administration Dates Next Due H1N1 Inj Preservative [...] Site/Laterality Comments OTHER SURGICAL HISTORY 1993 PROCEDURE: [place] COLECTOMY PARTIAL W/ANASTOMOSIS; COMMENT: iliectomy Medical History [...] of 3 - 19+ 3-dose series) 10/17/1999 HPV Vaccines (1 - 3-dose SCDM series) 10/17/2007 Pneumococcal Vaccine: Pediatrics (0 to 5 Years) and At-Risk Patients (6 to 49 Years) (2 of 2 - PCV) 05/28/2020 05/28/2019 HIV Screening 04/17/2022 Hepatitis C Screening 04/17/2022 Social Influencers of Health Screening 04/17/2022 Depression Screening 05/09/2024 Cholesterol Screening (Lipid Panel) 05/28/2024 05/28/2019 Breast Cancer Screening 08/10/2024 08/10/2022, 08/03 COVID-19 Vaccine (4 - season) 2025 04/17/2021, 07/02/2020, 06/04/2020 Influenza Vaccine (#1) 2025 , 02/06/2020, 02/26/2019, Additional history exists Cervical Cancer Screening: HPV 05/15/2025 05/15/2020 DTaP,Tdap,and Td Vaccines (3 - Td or Tdap) 05/28/2029 05/28/2019, 03/22/2005 RSV Immunization Adult Patients (1 - 1-dose 75+ series) 10/17/2055 HIB Vaccines Aged Out No longer eligi [...] * Cervical Cancer Screening: HPV (05/15/2020) Pathologist [facility] Cervical Cancer Screening: HPV negative,a bstracted Historical [...] Recently Relevant to Health Maintenance Care Teams Aluminum Polisher Relationship Specialty Start Date End Date Gilda Nails MD [address] [place] [id number] PCP - General 03/11/05
== END 2025-02-25 08:28 | disposition home or self-care (01) ==
LOC: HO.HSMS 07:43
PROVIDERS: PCP Nurse Practitioner Family; Visit Provider Nurse Practitioner Family
DX: G43.109 Migraine with aura, not intractable, without status migrainosus (principal); H53.9 Unspecified visual disturbance
CPT/HCPCS: 99214